=== PATIENT | female | born 1970 | race Caucasian/White ===

== ENCOUNTER → 2018-04-29 | Outpatient (CLI) | payer MEDICAID, OTHER ==
[~2018-04-29] MED LIST: ACHD5005 PO; ONDA-43 PO
--- NOTE | 2018-05-02 15:51 | Diagnostic Imaging Report ---
INDICATION: Routine screening. COMPARISON: 10/30/2015. TECHNIQUE: 2D and 3D bilateral screening mammography was performed with CAD. FINDINGS: Both breasts remain heterogeneously dense, limiting the sensitivity of mammography. Benign nodular densities are identified bilaterally. No spiculated mass or malignant appearing microcalcifications are seen. There are benign calcifications bilaterally. The axillae are unremarkable. IMPRESSION: No mammographic features suspicious for malignancy are identified. ACR BI-RADS Category 2: Benign findings. Result letter will be mailed to the patient. Note: At least 10% of breast cancer is not imaged by mammography. Dictated by: Dictated on workstation # [id number]
== END ==
LOC: RAD 14:09
PROVIDERS: ATTEND Nurse Practitioner
DX: Z12.31 Encounter for screening mammogram for malignant neoplasm of breast (principal)
CPT/HCPCS: 77067

== ENCOUNTER 2018-05-06 11:32 | Outpatient (CLI) | payer MEDICAID ==
[~2018-05-06] VITALS: Ht 162.6 cm; Wt 64.9 kg
== END 2018-05-06 12:59 ==
LOC: PREOP 11:32
PROVIDERS: ATTEND Surgery
DX: Z01.818 Encounter for other preprocedural examination (principal); D17.1 Benign lipomatous neoplasm of skin and subcutaneous tissue of trunk

== ENCOUNTER 2018-05-09 07:06 | Day surgery (SDC) | payer MEDICAID ==
[~2018-05-09] VITALS: Ht 162.6 cm; Wt 64.9 kg
[2018-05-09 07:10] VITALS: BP 108/76
--- OUTSIDE RECORDS SUMMARY | 2018-05-09 07:10 | XMS REPORT | Continuity of Care Document ---
Author Author [facility] Organization [facility] Address Unknown Phone Unavailable Allergies Active Description Code Type Severity Reaction Onset Reported/Identified Relationship to Patient Clinical Status Yes No Known Drug Allergies [id number] Drug Allergy Unknown N/A 12/02/2014 Medications There is no data. Problems Date Dx Coded Attending Type Code Diagnosis Diagnosed By 12/02/2014 NARINDER SLATER, GRACIE Ricketts Ot 558.9 NONINF GASTROENTERIT NEC 12/02/2014 GRACIE BARCENAS MD Ot 787.03 VOMITING ALONE 12/03/2014 EVON SLATER, HUGO Prieto Ot 540.9 ACUTE APPENDICITIS NOS Procedures There is no data. Results Test Result Range THYROID ANALYZER - 04/13/18 09:31 TSH 2.13 mIU/L NRG Encounters ACCT No. Visit Date/Time Discharge Status Pt. Type Provider Facility Loc./Unit Complaint [id number] 04/29/2018 14:09:00 04/29/2018 23:59:59 CLS Outpatient JAI HART [facility] RAD VISIT FOR SCREENING MAMMOGRAM [id number] 12/02/2014 23:56:00 12/03/2014 16:50:00 DIS Outpatient HUGO BARNARD MD [facility] ACUTE APPENDICITIS [id number] 12/02/2014 08:57:00 12/02/2014 12:00:00 DIS Emergency GRACIE BARCENAS MD [facility] ER VOMITING [id number] 12/04/2014 15:00:46 ACT Document Registration [id number] 04/20/2018 18:20:00 04/20/2018 23:59:59 CLS Outpatient PEARL ALDALOREN [facility] [id number] 04/13/2018 08:00:00 Document Registration
[2018-05-09] MEDS ORDERED: LACTATED RINGERS 1,000 ML IV PRN (07:22)
[2018-05-09] MEDS ORDERED: ceFAZolin 2 GM IV Premixed 50 ML IV ONE (07:30)
[2018-05-09] MEDS ORDERED: LIDOCAINE/EPI 1%-1:200,000 (XYLOCAINE) 10 ML VIAL ONE (07:46)
[2018-05-09] MEDS ORDERED: ONDANSETRON 4 MG/2 ML (SDV) Z0FRAN ONE (08:18)
[2018-05-09] MEDS ORDERED: LIDOCAINE PF 2% 5 ML (XYLOCAINE) VIAL ONE (08:18)
[2018-05-09] MEDS ORDERED: MIDAZOLAM 10 MG/2 ML (VERSED) VIAL ONE (08:18)
[2018-05-09] MEDS ORDERED: proPOfol 200 MG/20 ML (DIPRIVAN) VIAL IV ONE (08:18)
[2018-05-09] MEDS ORDERED: DEXAMETHASONE 10 MG/ML (DECADRON) 1 ML VIAL ONE (08:18)
[2018-05-09] MEDS ORDERED: MIDAZOLAM 2 MG/2 ML (VERSED) VIAL ONE (08:19)
[2018-05-09] MEDS ORDERED: fentaNYL INJECTION 100 MCG/2 ML AMP ONE (08:19)
--- NOTE | 2018-05-09 09:08 | Progress Note-Pre Operative ---
Pre-Operative Progress Note H&P Reviewed The H&P was reviewed, patient examined and no changes noted. Time Seen by Provider: 09:01 Date H&P Reviewed: May 09, 2018 Time H&P Reviewed: 09:04 Pre-Operative Diagnosis: left back/shoulder lipoma, screening colonoscopy RUIZ GARCIA DO May 09, 2018 09:08
[2018-05-09] MEDS ORDERED: SEVOFLURANE (ULTANE) 15 ML INHAL SOLN ONE (09:34)
[2018-05-09] MEDS ORDERED: PHENYLEPHRINE 100 MCG/ML 10 ML (ANESTHESIA) SYR ONE (09:34)
[2018-05-09] MEDS ORDERED: GLYCOPYRROLATE 0.2 MG/ML (ROBINUL) 2 ML VIAL ONE (09:35)
[2018-05-09] MEDS ORDERED: NEOSTIGMINE 1 MG/ML 5 ML SYRINGE ONE (09:35)
--- NOTE | 2018-05-09 10:07 | Progress Note-Post Operative ---
Post-Operative Progess Note Surgeon (s)/Sales Merchandising Specialist (s) Surgeon RUIZ GARCIA DO Sales Merchandising Specialist: none Pre-Operative Diagnosis left back/shoulder lipoma, screening colonoscopy Post-Operative Diagnosis Left back mass pending pathology Internal hemorrhoids Procedure & Operative Findings Date of Procedure 05/09/18 Procedure Performed/Findings 1. Excision back mass, subcutaneous just above fascia 2.3cm incision\ 2. Colonoscopy Anesthesia Type GET Estimated Blood Loss Estimated blood loss (mL): scant Specimens/Packing Specimens Removed Left back mass RUIZ GARCIA DO May 09, 2018 10:07
[2018-05-09] MEDS ORDERED: ACHD5005 PO (10:08)
--- NOTE | 2018-05-09 10:10 | Discharge Inst-Surgical ---
Discharge Inst-Surgical Depart Medication/Instructions New, Converted or Re-Newed RX: RX Given to Pt/Family Patient Instructions Follow up Appt: Make appointment for 1 week. Instructions: No lifting greater than 10 pounds. No strenuous activity. May shower in 24 hours, no tub bath or soaking. Use incentive spirometer at home as directed. No Smoking Skin/Wound Care: May remove bandages. You need to leave the Dermabond on over incision it will fall off on its own. Symptoms to Report: Appetite Changes, Extremity Discoloration, Numbness/Tingling, Swelling Increased , Bleeding Excessive, Eyesight Changes, Pain Increased, Urine Color Change, Constipation(Persistent), Fever over 101 degree F, Pain/Pressure in chest, Urinating Difficulty, Cough Up/Vomit Blood, Heart Beat Irreg/Pounding, Pain/ Pressure in jaw, Vaginal Bleeding Increase, Cramps in feet or legs, Lightheadedness, Pain/Pressure in shoulder, Diarrhea(Persistent), Memory Changes Suddenly, Questions/Concerns, Weight gain consecutive days, Dizziness/ Fainting, Nausea/Vomiting, Shortness of Breath, Weight gain over 2 pounds If questions or concerns contact your physician Or seek help at emergency department. Activity Activity as Tolerated: Yes Activity Instructions: Avoid Stress to Incision Driving Instructions: No Driving/Refer to Dr. Otto Discharge Diet: No Restrictions Diet After 24 Hours: Clear Liquid if Nauseous If Any Problems/Questions/Issu: Contact Your Physician, Go to Emergency Room Skin/Wound Care Infection Signs and Symptoms: Increased Redness, Foul Odor of Wound, Increased Drainage, Skin Itchy or Has a Rash, Increased Swelling, Temperature Above 101 F Bathing Instructions: Shower Stitches/[place]/Dermabond Dis: Dermabond Ice Pack: Ice On and Off Site RUIZ GARCIA DO May 09, 2018 10:10
[2018-05-09] MEDS ORDERED: HYDROmorphone 1 MG/ML (DILAUDID) 1 ML SYRINGE IV PRN (10:30)
[2018-05-09] MEDS ORDERED: ONDANSETRON 4 MG/2 ML (SDV) Z0FRAN IVP PRN (10:30)
[2018-05-09] MEDS ORDERED: MEPERIDINE (DEMEROL) INJ 50 MG/ML IVP PRN (10:30)
[2018-05-09] MEDS ORDERED: fentaNYL INJECTION 100 MCG/2 ML AMP IVP PRN (10:30)
[2018-05-09 11:00] VITALS: BP 105/72
[2018-05-09 11:30] VITALS: BP 103/65
[2018-05-09 12:00] VITALS: BP 108/76
[2018-05-09 12:37] VITALS: BP 108/76
--- NOTE | 2018-05-09 14:22 | Anesthesia-General Post-Op ---
General Patient Condition Mental Status/LOC: Same as Preop Cardiovascular: Satisfactory Nausea/Vomiting: Absent Respiratory: Satisfactory Pain: Controlled Complications: Absent Post Op Complications Complications None Follow Up Care/Instructions Patient Instructions None needed. Anesthesia/Patient Condition Patient Condition Patient is doing well, no complaints, stable vital signs, no apparent adverse anesthesia problems. No complications reported per nursing. D/C home per [facility] Criteria: Yes ERIC OLIVER CRNA May 09, 2018 14:22
--- NOTE | 2018-05-09 21:30 | OPERATIVE REPORT ---
DATE OF SERVICE: 05/09/2018 PREOPERATIVE DIAGNOSES: 1. Back mass. 2. Screening colonoscopy. POSTOPERATIVE DIAGNOSES: 1. Back mass. 2. Screening colonoscopy. 3. Pending pathology. PROCEDURES: 1. Excision of back mass 2.3 cm incision down to the fascia just above the muscle. 2. Colonoscopy. SURGEON: Yonis Almonte DO PEDIATRIC PHYSICIAN: None. ANESTHESIA: General endotracheal tube. BLOOD LOSS: Scant. FLUIDS: Per anesthesia. SPECIMEN: Back mass sent to pathology. INDICATION FOR PROCEDURE: The patient is a 47-year-old female who had a mass on her back that she wanted to remove. It was right in the bra strap causing to bother her, unsure whether it was increased in size and she has a strong family history of colon cancer, needed a screening colonoscopy. FINDINGS: The patient had a back mass, sent to pathology. Looked like it was just a lipoma. Colonoscopy just showed some internal hemorrhoids. PROCEDURE NOTE: After informed consent was obtained, the patient was brought to the operating room, placed on the table in the right lateral decubitus position. She was then sterilely prepped and draped in normal fashion. I started with taking out the back mass. Infiltrated above the mass with local lidocaine and it had already been previously marked, infiltrated the skin with local and then a round mass in the main incision with #15 blade, carried down through the skin into the subcutaneous tissue, then deep down to subcutaneous tissue with Bovie electrocautery. Incision measured 2.3 cm. Looked like just a lipoma, but it did not come out in 1 piece. It was little finger-like projection going off, able to dig down and removed this mass. It was all the way right on top of the fascia above the muscle. Able to remove this and then passed this off the table. Hemostasis obtained using Bovie electrocautery. Copiously irrigated with normal saline, suctioned this out and then elected to close the incision once I assured that all of the mass was out closing with 4-0 undyed Monocryl 3 interrupted subcuticular stitches. Area was cleaned and dried and Dermabond placed. The sterile field was taken down and she was then flipped into the left lateral decubitus position and then switched gloves and gown and started the colonoscopy, inserted the scope, pushed all the way about 140 cm, able to get to the cecum, took a picture of appendiceal orifice, noted the ileocecal valve and then slowly withdrew the scope, insufflating to look circumferentially at the de jesus. Starting in the cecum up the ascending colon to the hepatic flexure, down the transverse colon to the splenic flexure, into the descending colon and down into the sigmoid and finally into the rectum, retroflexed in the rectal vault, saw some internal hemorrhoids, took a picture of this and then removed the scope. The patient tolerated the procedure and she was then transferred to recovery room in stable condition. Sponge, instrument and needle count correct at the end of the case. Job ID: [id number] DocumentID: [id number] Dictated Date: 05/09/2018 14:18:38 Customer Specialist Date: 05/09/2018 21:30:18 Dictated By: YONIS ALMONTE DO MTDJed
== END 2018-05-09 12:37 | disposition home or self-care (01) ==
LOC: SDC 07:06
PROVIDERS: ATTEND Surgery
DX: Z12.11 Encounter for screening for malignant neoplasm of colon (principal); K64.8 Other hemorrhoids; D17.1 Benign lipomatous neoplasm of skin and subcutaneous tissue of trunk; Z80.0 Family history of malignant neoplasm of digestive organs
CPT/HCPCS: 84703; 87081

== ENCOUNTER 2020-02-06 17:02 | Observation (INO) | payer BC ==
[~2020-02-06] VITALS: Ht 162.6 cm; Wt 74.8 kg
[2020-02-06] MEDS ORDERED: NS IV 1000 ML 1,000 ML IV SCH ×2 (17:23)
[2020-02-06] MEDS ORDERED: KETOROLAC 30 MG/ML VIAL IVP ONE (17:30)
[2020-02-06] MEDS ORDERED: cefTRIAXone FOR IV USE 1,000 MG in WATER (STERILE) FOR INJECTION 10 ML IV ONE ×2 (17:30→19:00)
[2020-02-06] MEDS ORDERED: AZITHROMYCIN INJECTION 500 MG in NS (IVPB) 250 ML IV ONE (17:30)
--- NOTE | 2020-02-06 17:31 | ED Respiratory ---
General Chief Complaint: Cough/Cold/Flu Symptoms Stated Complaint: FEVER / BODY ACHES / HEADACHE Nursing Triage Note: pt amb to traige with complaint of cough, fever, and sore throat that started last night. states has hx of pneumonia that turned into septic shock Source: patient Exam Limitations: no limitations (EMI SINGH) History of Present Illness Date Seen by Provider: Feb 06, 2020 Time Seen by Provider: 17:10 Initial Comments The patient arrives to the ER by private conveyance with chief complaint of fever or chills malaise, body aches, sore throat. She says her cough is rare and produces only a small amount of phlegm. She's not having any nausea vomiting diarrhea or rash. She's had back in 2016 she got septic shock with pneumonia. Other than that she's had a completely healthy existence. She's had an appendectomy. She follows occasionally at [facility] but does not take any routine medicines or have any other significant medical history. She does not take control nor does she have a tubal ligation, essure for other contraceptive device. She has not had any antipyretic medication since yesterday because she wanted to prove that she had a fever to the emergency staff. (EMI SINGH) Allergies and Home Medications Allergies Coded Allergies: No Known Drug Allergies (Unverified , 12/02/14) Home Medications Hydrocodone Bit/Acetaminophen 1 Tab Tab, 1 TAB PO Q6H PRN Prescribed by: RUIZ GARCIA on 05/09/18 1008 Patient Home Medication List Home Medication List Reviewed: Yes (EMI SINGH) Review of Systems Review of Systems Constitutional: chills, fever, malaise, weakness EENTM: No ear discharge, No ear pain Respiratory: cough, phlegm, short of breath, wheezing Cardiovascular: No chest pain, No Hx of Intervention, No palpitations Gastrointestinal: No abdominal pain, No constipation, No diarrhea, No nausea, No vomiting Genitourinary: No discharge, No dysuria, No frequency, No hematuria : No Musculoskeletal: see HPI; No back pain, No joint pain Skin: No pruritus, No rash Psychiatric/Neurological: Denies Anxiety, Denies Depressed (EMI SINGH) All Other Systems Reviewed Negative Unless Noted: Yes (EMI SINGH) Past Ylxfcuj-Tmidby-Rkdhdz Hx Patient Social History Alcohol Use: Occasionally Uses Recreational Drug Use: No Smoking Status: Never a Smoker Recent Foreign Travel: No Contact w/Someone Who Travel: No Recent Infectious Disease Expo: No Recent Hopitalizations: No (EMI SINGH) Immunizations Up To Date Tetanus Booster (TDap): Unknown (EMI SINGH) Seasonal Allergies Seasonal Allergies: No (EMI SINGH) Past Medical History Surgeries: Yes (WISDOM TEETH, dxls, leep) Appendectomy Respiratory: Yes (hx of strep pneumonia w/ septic shock) Cardiac: No Neurological: No Reproductive Disorders: No Female Reproductive Disorders: 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 Sexually Transmitted Disease: No Kidney Stones Gastrointestinal: No Musculoskeletal: Yes (RIGHT WRIST- FX) Fractures Endocrine: No Cancer: No Psychosocial: No Integumentary: No Blood Disorders: No Adverse Reaction/Blood Tranf: No (EMI SINGH) Family Medical History Colon cancer FH: colon cancer 19 MOTHER, Onset:Unknown Thyroid disease 19 MOTHER, Onset:Unknown Physical Exam Vital Signs - First Documented 02/06/20 17:07 Temp 39.4 Pulse 138 Resp 20 B/P (MAP) 122/69 (86) Pulse Ox 97 O2 Delivery Room Air (HINA MADERA MD) Capillary Refill : Less Than 3 Seconds (EMI SINGH) Height: 5'4.00" Weight: 143lbs. 0.0oz. 64.978136yb; 28.00 BMI Method:Stated General Appearance: WD/WN, mild distress, moderate distress Eyes: Bilateral Eye Normal Inspection, Bilateral Eye PERRL, Bilateral Eye EOMI HEENT: PERRL/EOMI, normal ENT inspection, TMs normal, pharynx normal Neck: full range of motion, supple, normal inspection Respiratory: lungs clear, normal breath sounds, no accessory muscle use, respiratory distress (mild, respiratory rate of 20; oxygen saturation 99% on room air.) Cardiovascular: normal peripheral pulses, regular rate, rhythm Gastrointestinal: normal bowel sounds, non tender, soft Extremities: normal range of motion, non-tender, normal capillary refill Neurologic/Psychiatric: alert, normal mood/affect, oriented x 3 Skin: normal color, warm/dry (EMI SINGH) Focused Exam Lactate Level 02/06/20 17:25: Lactic Acid Level 1.93 (HINA MADERA MD) Lactic Acid Level Laboratory Tests Test 02/06/20 17:25 Lactic Acid Level 1.93 MMOL/L (0.50-2.00) (HINA MADERA MD) Progress/Results/Core Measures Suspected Sepsis Recent Fever Within 48 Hours: Yes Infection Criteria Present: None New/Unexplained Altered Menta: No Sepsis Screen: No Definite Risk SIRS Temperature: Pulse: 138 Respiratory Rate: 20 Laboratory Tests 02/06/20 17:25: White Blood Count 17.6H Blood Pressure 122 /69 Mean: 86 02/06/20 17:25: Lactic Acid Level 1.93 Laboratory Tests 02/06/20 17:25: Creatinine 0.77, INR Comment 1.0, Platelet Count 239, Total Bilirubin 0.5 (EMI SINGH) Results/Orders Lab Results Laboratory Tests Test 02/06/20 17:25 02/06/20 17:35 02/06/20 18:00 Range/Units White Blood Count 17.6 H 4.3-11.0 10^3/uL Red Blood Count 4.69 4.35-5.85 10^6/uL Hemoglobin 13.6 11.5-16.0 G/DL Hematocrit 40 35-52 % Mean Corpuscular Volume 86 80-99 FL Mean Corpuscular Hemoglobin 29 25-34 PG Mean Corpuscular Hemoglobin Concent 34 32-36 G/DL Red Cell Distribution Width 14.2 10.0-14.5 % Platelet Count 239 130-400 10^3/uL Mean Platelet Volume 10.1 7.4-10.4 FL Neutrophils (%) (Auto) 93 H 42-75 % Lymphocytes (%) (Auto) 4 L 12-44 % Monocytes (%) (Auto) 3 0-12 % Eosinophils (%) (Auto) 0 0-10 % Basophils (%) (Auto) 0 0-10 % Neutrophils # (Auto) 16.4 H 1.8-7.8 X 10^3 Lymphocytes # (Auto) 0.7 L 1.0-4.0 X 10^3 Monocytes # (Auto) 0.5 0.0-1.0 X 10^3 Eosinophils # (Auto) 0.0 0.0-0.3 10^3/uL Basophils # (Auto) 0.0 0.0-0.1 10^3/uL Neutrophils % (Manual) 89 % Lymphocytes % (Manual) 5 % Monocytes % (Manual) 3 % Eosinophils % (Manual) 0 % Basophils % (Manual) 0 % Band Neutrophils 2 % Reactive Lymphocytes 1 % Blood Morphology Comment NORMAL Prothrombin Time 13.7 12.2-14.7 SEC INR Comment 1.0 0.8-1.4 Activated Partial Thromboplast Time 29 24-35 SEC Sodium Level 132 L 135-145 MMOL/L Potassium Level 4.4 3.6-5.0 MMOL/L Chloride Level 98 98-107 MMOL/L Carbon Dioxide Level 20 L 21-32 MMOL/L Anion Gap 14 5-14 MMOL/L Blood Urea Nitrogen 11 7-18 MG/DL Creatinine 0.77 0.60-1.30 MG/DL Estimat Glomerular Filtration Rate > 60 BUN/Creatinine Ratio 14 Glucose Level 92 70-105 MG/DL Lactic Acid Level 1.93 0.50-2.00 MMOL/L Calcium Level 9.2 8.5-10.1 MG/DL Corrected Calcium 9.1 8.5-10.1 MG/DL Total Bilirubin 0.5 0.1-1.0 MG/DL Aspartate Amino Transf (AST/SGOT) 33 5-34 U/L Alanine Aminotransferase (ALT/SGPT) 18 0-55 U/L Alkaline Phosphatase 74 40-136 U/L C-Reactive Protein High Sensitivity 7.23 H 0.00-0.50 MG/DL Total Protein 8.0 6.4-8.2 GM/DL Albumin 4.1 3.2-4.5 GM/DL Procalcitonin 0.04 <0.10 NG/ML Urine Color PALLAVI H Urine Clarity TURBID Urine pH 6.0 5-9 Urine Specific [place] 1.020 1.016-1.022 Urine Protein 1+ H NEGATIVE Urine Glucose (UA) NEGATIVE NEGATIVE Urine Ketones 1+ H NEGATIVE Urine Nitrite NEGATIVE NEGATIVE Urine Bilirubin NEGATIVE NEGATIVE Urine Urobilinogen 0.2 < = 1.0 MG/DL Urine Leukocyte Esterase NEGATIVE NEGATIVE Urine RBC (Auto) 3+ H NEGATIVE Urine RBC TNTC H /HPF Urine WBC RARE /HPF Urine Squamous Epithelial Cells 0-2 /HPF Urine Crystals NONE /LPF Urine Bacteria FEW H /HPF Urine Casts NONE /LPF Urine Mucus SMALL H /LPF Urine Culture Indicated CULTURE PENDING Group A Streptococcus Screen NEGATIVE NEGATIVE (HINA MADERA MD) Micro Results Microbiology 02/06/20 Influenza Types A,B Antigen (NOEL) - Final, Complete (HINA MADERA MD) My Orders Orders - HINA MADERA MD Hs C Reactive Protein (02/06/20 18:05) Procalcitonin (Pct) (02/06/20 18:05) Ceftriaxone For Iv Use (Rocephin For I (02/06/20 19:00) Acetaminophen Tablet (Tylenol Tablet) (02/06/20 19:00) (HINA MADERA MD) Medications Given in ED Current Medications Medications Dose Ordered Sig/Shyanne Route Start Time Stop Time Status Last Admin Dose Admin Acetaminophen 1,000 mg ONCE ONCE PO 02/06/20 19:00 02/06/20 19:01 DC 02/06/20 19:03 1,000 MG Ceftriaxone Sodium 1000 mg/ Sterile Water 10 ml @ 200 mls/hr ONCE ONCE IV 02/06/20 19:00 02/06/20 19:02 DC 02/06/20 19:13 200 MLS/HR (HINA MADERA MD) Vital Signs/I&O 02/06/20 02/06/20 17:07 19:05 Temp 39.4 39.4 Pulse 138 112 Resp 20 20 B/P (MAP) 122/69 (86) 131/65 Pulse Ox 97 97 O2 Delivery Room Air Room Air 02/07/20 00:00 Intake Total 1270 ml Balance 1270 ml (HINA MADERA MD) Vital Signs/I&O Capillary Refill : Less Than 3 Seconds (EMI SINGH) Blood Pressure Mean: 86 Progress Note : Time: 17:32 Progress Note Flulike symptoms with mild rest for symptoms body aches. Plan to give her Toradol for her body aches and fever. Strep and influenza swabs. Septic workup. 2 L would be between 20 and 30 cc/kg. (EMI SINGH) Progress Note #1: Time: 19:49 Progress Note Care of this patient from Dr. Singh at shift change. I received verbal report and reviewed the chart, labs, x-ray, etc. Workup was significant for leukocytosis and elevated CRP. No source of infection was found. Chest x-ray, urinalysis, flu swab, and strep swab were all negative. I obtain some further history. Patient reports her 8-year-old son was ill last week for 2 or 3 days with fever and sore throat. He recovered without treatment and without being seen. She feels like her symptoms are similar. She primarily complains of congestion and drainage, sore throat, neck pain, and myalgias. Her chest symptoms have been minimal including some mild tightness and minimal cough. She denies any of the screening criteria for COVID 19 including contact with PUI, exposure to persons that have traveled to a high risk region, or travel to a high risk region herself. I did call [facility] and left a message about her case since no source of infection was identified and she has had exposure to children who recently visited ill family members out of town. 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 She also lives with an adult daughter who works at a school in [place], [place]. [facility] was contacted and I left a message for review. Significant symptoms she described to me included neck pain, neck stiffness, and headache actually worsened despite receiving IV fluids and Toradol. I discussed performing CT of the head and lumbar puncture with patient. She declines these tests stating it is common for her to have migraines and have headaches when she feels ill. She also states neck pain was already present before she became ill. She had no nuchal rigidity on exam. We discussed risks and benefits of CT of the head and lumbar puncture. She declines these assessments. Case was discussed with Dr. Bedolla who agrees to admit for observation. Patient received 1 g of Rocephin under Dr. Singh's care. I ordered a second gram of Rocephin. She also received azithromycin when under Dr. Singh's care. Those antibiotics were ordered prior to review of chest x-ray. Patient does not meet septic criteria as there is no source of bacterial infection identified. We will continue antibiotics as a precaution and observe her overnight. Tylenol was added for further treatment of her headache. Patient is agreeable to admission for observation. Progress Note #2: Time: 20:30 Progress Note Received a call back from financial project manager at the [facility]. Because of patient's significant symptoms with no source of infection identified, they would like her screening for COVID 19. Appropriate institutional precautions will now be enforced. This was discussed with the patient. Specimen collection is being performed and the appropriate questionnaire is being faxed to [facility]. She will be admitted to an isolation room. She was advised to investigate exposures the children in her classroom may have had. She was also advised to inform her close contacts that she is now a person under investigation (HINA MADERA MD) Diagnostic Imaging Diagonstic Imaging: Xray Plain Films/CT/US/NM/MRI: chest (1v) Reviewed: Reviewed by Me (EMI SINGH) Comments NAME: [facility] REC#: [id number] PT STATUS: REG ER : 1970 PHYSICIAN: EMI SINGH MD ADMIT DATE: 02/06/20/ER Signed Date of Exam:02/06/20 CHEST 1 VIEW, AP/PA ONLY INDICATION: Cough, fever, and sore throat. TIME OF EXAM: 06:15 p.m. COMPARISON: No prior studies are available for comparison. FINDINGS: The heart size is normal. The pulmonary vascularity is unremarkable. The lungs are clear. No infiltrate, effusion or pneumothorax is detected. IMPRESSION: No acute cardiopulmonary process is detected. Dictated by: Dictated on workstation # [id number] Dict: 02/06/201816 Trans: 02/06/201836 [id number] Interpreted by: RIGOBERTO CLIFTON MD Electronically signed by: RIGOBERTO CLIFTON MD 02/06/201836 (HINA MADERA MD) Transfer of Care Transfer of Care Time: 18:00 Care transferred to: Dr. Motley (EMI SNIGH) Departure Communication (Admissions) Time/Spoke to Admitting Phy: 19:20 Dr. Bedolla (HINA MADERA MD) Impression Primary Impression: Flu-like symptoms Additional Impressions: Sore throat Headache Qualified Codes: R51 - Headache Myalgia Disposition: ADMITTED INPATIENT Condition: Improved Admissions Decision to Admit Reason: Admit from ER (General) Decision to Admit/Date: Feb 06, 2020 Time/Decision to Admit Time: 18:00 (HINA MADERA MD) Departure-Patient Inst. Referrals: [facility] (PCP/Family) Primary Care Physician EMI SINGH Feb 06, 2020 17:31 HINA MADERA MD Feb 06, 2020 19:56
[2020-02-06 17:37] LABS: BASOPHILS % (AUTO) 0 % (0-10); EOSINOPHILS % (AUTO) 0 % (0-10); HEMATOCRIT 40 % (35-52); HEMOGLOBIN 13.6 G/DL (11.5-16.0); LYMPHOCYTES # (AUTO) 0.7 X 10^3 (1.0-4.0); LYMPHOCYTES % (AUTO) 4 % (12-44); MEAN CORPUSCULAR HEMOGLOBIN 29 PG (25-34); MEAN CORPUSCULAR HGB CONC 34 G/DL (32-36); MEAN CORPUSCULAR VOLUME 86 FL (80-99); MEAN PLATELET VOLUME 10.1 FL (7.4-10.4); MONOCYTES # (AUTO) 0.5 X 10^3 (0.0-1.0); MONOCYTES % (AUTO) 3 % (0-12); NEUTROPHILS # (AUTO) 16.4 X 10^3 (1.8-7.8); NEUTROPHILS % (AUTO) 93 % (42-75); PLATELET COUNT 239 10^3/uL (130-400); RED CELL DISTRIBUTION WIDTH 14.2 % (10.0-14.5); WHITE BLOOD COUNT 17.6 10^3/uL (4.3-11.0)
[2020-02-06 17:44] LABS: BILIRUBIN,URINE NEGATIVE (NEGATIVE); CLARITY,URINE TURBID; COLOR,URINE AMBER; GLUCOSE, URINE (UA) NEGATIVE (NEGATIVE); KETONES,URINE 1+ (NEGATIVE); LEUKOCYTE ESTERASE ,URINE NEGATIVE (NEGATIVE); NITRITE,URINE NEGATIVE (NEGATIVE); PROTEIN,URINE 1+ (NEGATIVE)
[2020-02-06 17:48] LABS: PROTHROMBIN TIME PATIENT 13.7 SEC (12.2-14.7)
[2020-02-06 17:49] LABS: BACTERIA,URINE FEW /HPF; RBC,URINE TNTC /HPF; SQUAMOUS EPITHELIAL CELL,UR 0-2 /HPF; WBC,URINE RARE /HPF
[2020-02-06 17:53] LABS: BAND NEUTROPHILS 2 %; BASOPHILS % (MANUAL) 0 %; EOSINOPHILS % (MANUAL) 0 %; LYMPHOCYTES % (MANUAL) 5 %; MONOCYTES % (MANUAL) 3 %; NEUTROPHILS % (MANUAL) 89 %; REACTIVE LYMPHOCYTES 1 %
[2020-02-06 17:54] LABS: ALANINE AMINOTRANSFERASE 18 U/L (0-55); ALBUMIN 4.1 GM/DL (3.2-4.5); ALKALINE PHOSPHATASE 74 U/L (40-136); BILIRUBIN,TOTAL 0.5 MG/DL (0.1-1.0); BUN/CREATININE RATIO 14; CALCIUM 9.2 MG/DL (8.5-10.1); CARBON DIOXIDE 20 MMOL/L (21-32); CHLORIDE 98 MMOL/L (98-107); CREATININE SERUM 0.77 MG/DL (0.60-1.30); GFR ESTIMATED > 60; GLUCOSE 92 MG/DL (70-105); POTASSIUM 4.4 MMOL/L (3.6-5.0); RBC MORPH NORMAL; SODIUM 132 MMOL/L (135-145)
--- NOTE | 2020-02-06 18:19 | Diagnostic Imaging Report ---
INDICATION: Cough, fever, and sore throat. TIME OF EXAM: 06:15 p.m. COMPARISON: No prior studies are available for comparison. FINDINGS: The heart size is normal. The pulmonary vascularity is unremarkable. The lungs are clear. No infiltrate, effusion or pneumothorax is detected. IMPRESSION: No acute cardiopulmonary process is detected. Dictated by: Dictated on workstation # [id number]
[2020-02-06] MEDS ORDERED: ACETAMINOPHEN 500 MG TAB (TYLENOL) PO ONE (19:00)
--- NOTE | 2020-02-06 19:08 | NUR ---
REPORT TO LOREN SAMANO
--- NOTE | 2020-02-06 19:09 | NUR ---
TEMP 99.3
--- NOTE | 2020-02-06 20:44 | NUR ---
ASSUMED PRIMARY NURSE ROLE
[2020-02-06 22:55] VITALS: BP 142/92
[2020-02-06] MEDS ORDERED: CATHETER FLUSH 10 ML SYR IV PRN (23:15)
[2020-02-06] MEDS ORDERED: ACETAMINOPHEN 500 MG TAB (TYLENOL) PO PRN (23:15)
--- OUTSIDE RECORDS SUMMARY | 2020-02-06 23:32 | XMS REPORT ---
Author Author Tamara FRANCO Organization [facility] Address [address] [place] [address] Care Team Providers Care Bank Consultant Name Role Phone ELYSIA FRANCO Unavailable PROBLEMS Type Condition ICD9-CM Code RFE15-LO Code Onset Dates Condition S tatus SNOMED Code Problem Elevated LDL cholesterol level E78.00 Active [id number] ALLERGIES No Information ENCOUNTERS Encounter Location Date Diagnosis [facility] [id number] [place] [phone] March, Lipoma of back D17.1 [place] [address] [address] [place] [phone] March, Elevated LDL cholesterol lev el E78.00 [facility] [address] [place] [phone] March, Annual physical exam Z00.00 and Lump of skin of back R22.2 IMMUNIZATIONS No Known Immunizations SOCIAL HISTORY Never Assessed REASON FOR VISIT lab order PLAN OF CARE VITAL SIGNS MEDICATIONS Unknown Medications RESULTS No Results PROCEDURES No Known procedures INSTRUCTIONS MEDICATIONS ADMINISTERED No Known Medications MEDICAL (GENERAL) HISTORY Type Description Date Medical History Anemia Medical History Sepsis 2015 Medical History Bacterial pneumonia- strep Medical History Ovarian cysts Surgical History Intrauterine device not placed correctly and had to be removed Surgical History Appendectomy Hospitalization History past surgery Hospitalization History pneumonia/sepsis
--- OUTSIDE RECORDS SUMMARY | 2020-02-06 23:32 | XMS REPORT | Continuity of Care Document ---
Author Organization Unknown Address Unknown Phone Unavailable Allergies Active Description Code Type Severity Reaction Onset Reported/Identified Relationship to Patient Clinical Status Yes No Known Drug Allergies [id number] Drug Allergy Unknown N/A 12/02/2014 Medications There is no data. Problems Date Dx Coded Attending Type Code Diagnosis Diagnosed By 12/02/2014 NARINDER SLATER, GRACIE Ricketts Ot 558 .9 NONINF GASTROENTERIT NEC 12/02/2014 NARINDER SLATER, GRACIE Ricketts Ot 787.03 VOMITING ALONE 12/03/2014 EVON SLATER, HUGO Prieto Ot 540.9 ACUTE APPENDICITIS NOS 05/02/2018 JAI HART Ot Z12.3 1 ENCNTR SCREEN MAMMOGRAM FOR MALIGNANT NE 05/06/2018 RADHA DO, RUIZ B Ot D17.1 BENIGN LIPOMATOUS NEOPLASM OF SKIN, SUBC 05/06/2018 RADHA DO, RUIZ B Ot Z01.8 18 ENCOUNTER FOR OTHER PREPROCEDURAL EXAMIN 05/09/2018 JAI HART DIRECTOR APPOINTMENT Ot Z12.3 1 ENCNTR SCREEN MAMMOGRAM FOR MALIGNANT NE 05/09/2018 RADHA DO, RUIZ B Ot D17.1 BENIGN LIPOMATOUS NEOPLASM OF SKIN, SUBC 05/09/2018 DELKAMRAN DO, RUIZ B Ot Z01.8 18 ENCOUNTER FOR OTHER PREPROCEDURAL EXAMIN 05/09/2018 DELMAN DO, RUIZ B Ot D17.1 BENIGN LIPOMATOUS NEOPLASM OF SKIN, SUBC 05/09/2018 DELMAN DO, RUIZ B Ot K64.8 OTHER HEMORRHOIDS 05/09/2018 DELKAMRAN DO, RUIZ B Ot Z12.1 1 ENCOUNTER FOR SCREENING FOR MALIGNANT NE 05/09/2018 RADHA DO, RUIZ B Ot Z80.0 FAMILY HISTORY OF MALIGNANT NEOPLASM OF 05/10/2018 DELKAMRAN DO, RUIZ B Ot D17.1 BENIGN LIPOMATOUS NEOPLASM OF SKIN, SUBC 05/10/2018 RADHA DO RUIZ B Ot K64.8 OTHER HEMORRHOIDS 05/10/2018 DELKAMRAN DO, RUIZ B Ot Z12.1 1 ENCOUNTER FOR SCREENING FOR MALIGNANT NE 05/10/2018 RUIZ GARCIA DO Ot Z80.0 FAMILY HISTORY OF MALIGNANT NEOPLASM OF 05/15/2018 RUIZ GARCIA DO Ot D17.1 BENIGN LIPOMATOUS NEOPLASM OF SKIN, SUBC 05/15/2018 RUIZ GARCIA DO Ot K64.8 OTHER HEMORRHOIDS 05/15/2018 RUIZ GARCIA DO Ot Z12.1 1 ENCOUNTER FOR SCREENING FOR MALIGNANT NE 05/15/2018 RUIZ GARCIA DO Ot Z80.0 FAMILY HISTORY OF MALIGNANT NEOPLASM OF 05/16/2018 JAI HART Ot Z12.3 1 ENCNTR SCREEN MAMMOGRAM FOR MALIGNANT NE 12/25/2019 JAI HART Ot Z12.3 1 ENCNTR SCREEN MAMMOGRAM FOR MALIGNANT NE 02/06/2020 JAI HART Ot Z12.3 1 ENCNTR SCREEN MAMMOGRAM FOR MALIGNANT NE Procedures There is no data. Results Test Result Range Urine beta human chorionic gonadotropin (hCG) measurement - 05/09/18 07:15 Urine beta human chorionic gonadotropin (hCG) measurem ent NEGATIVE NEGATIVE Methicillin resistant Staphylococcus aur eus (MRSA) screening culture - 05/09/18 07:35 Methicillin resistant Staphylococcus aureus (MRSA) scr eening culture NEG NRG Encounters ACCT No. Visit Date/Time Discharge Status Pt. Type Provider Facility Loc./Unit Complaint [id number] 01/05/2020 09:30:00 020 23:59:59 CLS Preadmit KAN MÁRQUEZ APRN [facility] RAD SCREENING [id number] 05/09/2018 07:06:00 018 12:37:00 DIS Outpatient RUIZ GARCIA DO [facility] SDC LIPOMA/COLONOSCOPY [id number] 05/06/2018 11:32:00 018 12:59:00 DIS Outpatient RUIZ GARCIA DO [facility] PREOP LIPOMA/COLONOSCOPY [id number] 04/29/2018 14:09:00 018 23:59:59 CLS Outpatient JAI HART [facility] RAD VISIT FOR SCREENING YURI MOGRAM [id number] 12/02/2014 23:56:00 015 16:50:00 DIS Outpatient EVON SLATER, HUGO Prieto [facility] ACUTE APPENDICITIS [id number] 12/02/2014 08:57:00 015 12:00:00 DIS Emergency NARINDER SLATER, GRACIE Ricketts [facility] ER VOMITING [id number] 02/06/2020 17:03:[address] Emergency CASSY SLATER, HINA Cordero [facility] ER FEVER / BODY ACHES / HEADACH E
--- OUTSIDE RECORDS SUMMARY | 2020-02-06 23:32 | XMS REPORT ---
Author Author [employer] Organization [facility] Address [address] [address] Care Team Providers Care Residential Energy Auditor Name Role Phone NO, LOCAL PHYSICIAN Unavailable Unavailable FRANCOELYSIA CARRINGTON Unavailable FRANCO, KIMMYLIOR Unavailable FRANCO, KIMMYLIOR Unavailable TRAMAINEROMULOAN Unavailable RUIZ GARCIA DO Unavailable Unavailable NARINDER SLATER, GRACIE Ricketts Unavailable Unavailable QUICK JAI MORGAN Unavailable Unavailable EVON SLATER, REUBEN Prieto Unavailable Unavailable Allergies The data below is from unstructured sources Allergen Type Severity Reaction Status Last Updated No Known Drug Allergies Active 12/02/14 No Information Medications Current Medications Medication Ingredient Drug Dose Dates Status Sig Sig Care Class(es) (Normalized) (Original) Provid er albendazole Albendazole Antihelmint 400 mg 10-20-20 Active no Albenza 200 no 200 mg oral Translation hic 18 information mg Orally name tablet (1 s: [ Once a day 2 (no source.) Albenza 200 tablets phone) mg] repeat in 2 weeks. 24h Sep, Active Completed/Discontinued Medications Medication Ingredient Drug Dose Dates Status Sig Sig Care Class(es) (Normalized) (Original) Provid er no Acetaminoph no 12-03-19 Complete take 5-1 Acetaminophe Reuben information en/Hydrocod information 15 - d tablets by n/H ydrocodon M (2 one Bitart 05-06-20 mouth every e Bitart Rachel sources.) (Lortab 5 18 four hours (Lortab 5 s (no Mg) 1 Tab as needed Mg) 1 Tab phone) Tab, 1-2 for pain Tab, 1-2 Tab Tab Oral Oral Every 4HRS as needed for Mild To Moderate Pain 12/03/14 Discontinued Problems Active Problems Problem Normalized Date of Normalized Normalized Provider Fac ility Classification Problem(s) Problem Problem Problem Sta tus Onset/Resoluti Duration on Other and Benign Episodic Active RUIZ GARCIA [facility] Via unspecified lipomatous DO [facility] benign neoplasm of Hospital - neoplasm (9 skin and [place] sources.) subcutaneous (03260) tissue of trunk Translations: [ - Lipoma of back D17.1] Other Encounter for Episodic Active IZAIAH MARTINEZ Vi a screening for screening [facility] [place] suspected [facility] for Hospital - conditions malignant [place] (not mental neoplasm of (94827) disorders or breast infectious Translations: disease) (7 [ ENCOUNTER sources.) FOR SCREENING FOR MALIGNANT NE] Residual Family history Episodic Active IZAIAH ROBERTS Via codes; of malignant DO [facility] unclassified neoplasm of Hospital - (3 sources.) digestive [place] organs (74667) Other and Lipoma Episodic Active LOCAL NO [facility] benign [place] neoplasm (2 (14531) sources.) Other skin Localized Episodic Active JAIMA FRANCO Communit y disorders (4 swelling, mass [address] [facility] r sources.) and lump, of [place] ([address]) Translations: [ - Lump of skin of back R22.2] Noninfectious Other and Episodic Active GRACIE ODGERS [facility] Via gastroenteriti unspecified , MD [place] jensen (4 sources.) noninfectious [facility] and colitis (32943) Hemorrhoids (3 Other Episodic Active IZAIAH ROBERTS Via sources.) hemorrhoids DO [facility] ([address]474) Other Raised low Episodic Active JAIMA FRANCO Communit y nutritional; density [address] [facility] endocrine; and lipoprotein of [facility] metabolic cholesterol [place] ([address]) disorders (4 Translations: sources.) [ Elevated LDL cholesterol level] Nausea and Vomiting alone Episodic Active GRACIE GANGERS [facility] Via vomiting (4 , MD [place] sources.) [facility] (17700) Past or Other Problems Problem Normalized Date of Normalized Normalized Provider Fac ility Classification Problem(s) Problem Problem Problem Sta tus Onset/Resoluti Duration on Unclassified Pure no information no information JAIMA BECKE R Community (4 sources.) hypercholester [address] [facility] Cent[facility] r [place], of [facility] ([address]) Translations: [ - Elevated LDL cholesterol level E78.00] Procedures Procedure Normalized Procedure Procedure Result Performer Facility Date 04-13-2018 Collection venous no information no name (no phone) [facility] blood venipuncture [facility] (08883) 05-09-2018 Colonoscopy no information RUIZ GARCIA Via [facility] ([id number]) 05-09-2018 - 05-09-2018 05-09-2018 Excision of lipoma no information RUIZ GARCIA Vi a [facility] (41308) 04-13-2018 Hemoglobin no information no name (no phone) [facility] glycosylated a1c [facility] (23645) 04-13-2018 LAB NOT BILLED BY no information no name (no phone) [facility] (77441) 04-13-2018 Radiologic exam chest no information no name (no ph one) [facility] 2 views [facility] (08918) Immunizations Normalized Immunization Date Notes Care Provider Facili ty Immunization Vaccination no information LOCAL NO Via [facility] Translations: [ [place] () vaccine] Results Test Name Value Interpretation Reference Range Date Time Fa cility (Normalized) (Normalized) (Medline Reference) No panel information on null Sodium no information (no code) Via [facility] ([address]306) Vital Signs Vital Sign Value Interpretation Reference Date Time Care Prov ider Facility (Normalized) (Normalized) Range BMI (Body Mass 30.55 kg/m2 (no code) 15 - 25 kg/m2 04-20-2018 Rentabilities FRANCO Community Index) 19:20-0400 [address]106 [facility] (31870) BMI (Body Mass 24.94 kg/m2 (no code) 15 - 25 kg/m2 04-13-2018 Rentabilities FRANCO Community Index) 09:00-0400 69365 [facility] (01622) Body 99.2 [degF] (no code) 97.8 - 99.0 04-20-2018 ELYSIA JONES Community Temperature [degF] 19:20-0400 7[address]28 [facility] (81651) Body 97.6 [degF] (no code) 97.8 - 99.0 04-13-2018 [facility] Temperature [degF] 09:00-0400 97109 [facility] (21513) Height 162.56 cm (no code) cm 04-20-2018 ELYSIA Alberto ommunity 19:20-0400 95418 [facility] (05603) Height 162.56 cm (no code) cm 04-13-2018 ELYSIA Alberto ommunity 09:00-0400 94793 [facility] (43723) Weight 80.74 kg (no code) kg 04-20-2018 ELYSIA FRANCO Co mmunity 19:20-0400 60252 [facility] (94209) Weight 65.91 kg (no code) kg 04-13-2018 ELYSIA Redmond mmunity 09:00-[address] [place] [address] ([address]) Interventions No Information Plan of Treatment The data below is from unstructured sources Discharge Date 12/03/14 4:50pm Disposition 01 HOME, SELF-CARE Instructions/Education Provided Acut e Abdominal Pain (ED) Forms Provided PDI Surgical Prescriptions See Medications Sectio n Referrals REUBEN BARNARD MD (Unspe cified) Address: [address] [place] [address] Reason(s) for Referral: 12/13/14 9:15 AM MAY RETURN TO WORK WHEN CLEARED BY DR. BARNARD Discharge Date 05/06/18 12:59pm Prescriptions See Medication Section Discharge Date 05/09/18 12:37pm Instructions/Education Provided ANES THESIA INSTRUCTIONS POSTOP COLONOSCOPY DERMABOND Surgical Wound (DC) Prescriptions See Medication Section Activity Details Follow Up With Dr. Macias Reason:lip shemar removal Activity Details Follow Up 3 Months, prn Reason:lump on back Goals No Information Social History No Information Functional Status The data below is from unstructured sources Query Response Date Frank rded Comprehension Ability Understands Co ncepts December 03, 2014 1:10am Mental Status No Information Encounters Encounter Normalized Encounter Encounter Diagnosis Care Provi césar Organization Date Type 04-20-2018 (ACUTE) Acute Visit Benign lipomatous ELYSIA FRANCO (no [facility] - neoplasm of skin and phone) (no phone ) 04-20-2018 subcutaneous tissue of - trunk 04-20-2018 04-13-2018 (PHYSICAL) Encounter for general ELYSIA FRANCO (no [facility] - Physical-Sport, Camp, adult medical phone) (n o phone) 04-13-2018 School, DOT, etc. examination without - abnormal findings 04-13-2018 05-09-2018 Admission to day no information RUIZ Nikolas DELShattered Reality Interactive Work no organization name - surgery (no phone ) 05-09-2018 05-09-2018 Patient encounter no information no name (no phone) no organization name - (no phone) 05-09-2018 05-06-2018 Patient encounter no information RUIZ B DELMAN Work no organization name - (no phone) 05-06-2018 RUIZ B [employer] 04-29-2018 Patient encounter no information JAI MORGAN QUICK W ork no organization name (no phone) JAI QUINTANILLALemonCrate 12-02-2014 Patient encounter no information no name (no phone) no organization name - (no phone) 12-03-2014 05-09-2018 Patient encounter no information no name (no phone) no organization name - procedure (no phone) 05-09-2018 05-06-2018 Patient encounter no information no name (no phone) no organization name - procedure (no phone) 05-06-2018 04-29-2018 Patient encounter no information no name (no phone) no organization name procedure (no phone) 12-02-2014 Patient encounter no information no name (no phone) no organization name - procedure (no phone) 12-03-2014 10-20-2018 Telephone encounter no information BELENZAYDA ROSENTHALCARSON (no phone) [facility] (no phone) 04-19-2018 Telephone encounter Pure ELYSIA FRANCO (no [facility] - hypercholesterolemia, phone) (no phon e) 04-19-2018 unspecified - 04-19-2018 no information Encounter for general no name (no phone) no o rganization name adult medical (no phone) examination without abnormal findings no information Encounter for other no name (no phone) no org anization name preprocedural (no phone) examination Medical Equipment No Information Payers Normalized Payer Value Unknown [id number] ([id number]) Advance Directives Directive Response Recor ded Date/Time Advance Directives No 12:55am Organ Donor Yes 12/03/14 12:55am Resuscitation Status Full Code 12/03/14 12:55am Directive Response Recor ded Date/Time Advance Directives No 8:55am Resuscitation Status Full Code 12/02/14 8:55am Directive Response Recor ded Date/Time Advance Directives No 12:45pm Organ Donor Yes 12/03/14 12:55am Resuscitation Status Full Code 05/06/18 12:45pm Directive Response Recor ded Date/Time Advance Directives No 7:10am Organ Donor Yes 05/09/18 7:10am Resuscitation Status Full Code 05/09/18 7:10am Discharge Instructions Patient Instructions Physician Instructions New, Converted or Re-Newed RX: RX on Chart Plan of Care/Instructions/FU: Dressings off in 48 hours. Incentive spirometry. Follow-up in 10 days. Activity as Tolerated: Yes Discharge Diet: Regular Diet No hospital discharge instructions.No hospital discharge instructions.No hospital discharge instruction information available.No hospital discharge instruction information available. Family History Relationship Condition A ge at Onset Recorded Date/Time Not Specified Family hx of colon cancer Not Recorded 05/06/2018 12:57pm Additional Source Comments This clinical document has been generated using CSID software that has been certified by the Office of the National Coordinator for Health Information Technology (ONC 15.99.04.3023.Diam.31.00.0.736120) and the National Committee for Installment Dealer (NCQA, as an eMeasure certified technology). FOR RECORDS PERTAINING TO PATIENTS WHO ARE OR HAVE BEEN ENROLLED IN A CHEMICAL D EPENDENCY/SUBSTANCE ABUSE PROGRAM, SOME INFORMATION MAY BE OMITTED. This clinica l summary was aggregated from multiple sources. Caution should be exercised in using it in the provision of clinical care. This summary normalizes information from multiple sources, and as a consequence, information in this document may ma terially change the coding, format and clinical context of patient data. In makenzie tion, data may be omitted in some cases. CLINICAL DECISIONS SHOULD BE BASED ON T HE PRIMARY CLINICAL RECORDS. [employer] provides no warranty or guara ntee of the accuracy or completeness of information in this document.The followi ng information is based on time limited clinical information UNRECOGNIZED CONTENT PROVIDED BELOW FOR UNRECOGNIZED SECTION MEDICAL (GENERAL) HISTORY Type Description Date Medical History Anemia Medical History Sepsis 2015 Medical History Bacterial pneumonia- strep Medical History Ovarian cysts Surgical History Intrauterine device not placed correctly and had to be removed Surgical History Appendectomy Hospitalization History past surgery Hospitalization History pneumonia/sepsis UNRECOGNIZED CONTENT PROVIDED BELOW FOR UNRECOGNIZED SECTION REASON FOR VISIT Worm treatment.
--- OUTSIDE RECORDS SUMMARY | 2020-02-06 23:32 | XMS REPORT ---
Author Author Tamara FRANCO Organization [facility] Address [address] [place] [address] Care Team Providers Care Warehouse Stocker Name Role Phone ELYSIA FRANCO Unavailable PROBLEMS Type Condition ICD9-CM Code CEO33-KT Code Onset Dates Condition S tatus SNOMED Code Problem Elevated LDL cholesterol level E78.00 Active [id number] ALLERGIES No Known Allergies ENCOUNTERS Encounter Location Date Diagnosis [facility] [address] [id number] [address] [place] [phone] March, Lipoma of back D17.1 [place] [address] [address] [place] [phone] March, Elevated LDL cholesterol lev el E78.00 [facility] [address] [place] [phone] March, Annual physical exam Z00.00 and Lump of skin of back R22.2 IMMUNIZATIONS No Known Immunizations SOCIAL HISTORY Never Assessed REASON FOR VISIT bernadette chino-Gilma PLAN OF CARE Activity Details Follow Up With Dr. Macias Reason:lipom a removal VITAL SIGNS Height 64 in 2018-04-20 Weight 178 lbs 2018-04-20 Temperature 99.2 degrees Fahrenheit 2018-04-20 Heart Rate 96 bpm 2018-04-20 Respiratory Rate 18 2018-04-20 BMI 30.55 kg/m2 2018-04-20 Blood pressure systolic 104 mmHg 2018-04-20 Blood pressure diastolic 62 mmHg 2018-04-20 MEDICATIONS Unknown Medications RESULTS No Results PROCEDURES [...]
--- OUTSIDE RECORDS SUMMARY | 2020-02-06 23:32 | XMS REPORT ---
Author Author Tamara FRANCO Organization [facility] Address [address] [place] [address] Care Team Providers Care Mirror Machine Feeder Name Role Phone ELYSIA FRANCO Unavailable PROBLEMS Type Condition ICD9-CM Code IFM09-FM Code Onset Dates Condition S tatus SNOMED Code Problem Elevated LDL cholesterol level E78.00 Active [id number] ALLERGIES No Known Allergies ENCOUNTERS Encounter Location Date Diagnosis [facility] [address] [place] [phone] March, Lipoma of back D17.1 [place] [address] [address] [place] [address] [id number] [place] [phone] March, Elevated LDL cholesterol lev el E78.00 [facility] [id number] [place] [phone] March, Annual physical exam Z00.00 and Lump of skin of back R22.2 IMMUNIZATIONS No Known Immunizations SOCIAL HISTORY Never Assessed REASON FOR VISIT Physical - DUE for Pap/HPV today--tcuppettRN, Has a lump on back that has been t here for about 5 months. Has not changed in size denies pain. PLAN OF CARE Activity Details Follow Up 3 Months, prn Reason:lump on back VITAL SIGNS Height 64 in 2018-04-13 Weight 145.3 lbs 2018-04-13 Temperature 97.6 degrees Fahrenheit 2018-04-13 Heart Rate 80 bpm 2018-04-13 Respiratory Rate 18 2018-04-13 BMI 24.94 kg/m2 2018-04-13 Blood pressure systolic 118 mmHg 2018-04-13 Blood pressure diastolic 70 mmHg 2018-04-13 MEDICATIONS Unknown Medications RESULTS No Results PROCEDURES Procedure Date Ordered Result Body Site Hemoglobin Test Send Out 0 dollar April 13, 2018 LAB NOT BILLED BY [facility] April 13, 2018 VENIPUNCT, ROUTINE* April 13, 2018 X-RAY EXAM CHEST 2 VIEWS April 13, 2018 INSTRUCTIONS MEDICATIONS ADMINISTERED No Known Medications MEDICAL (GENERAL) HISTORY Type Description Date Medical History Anemia Medical History Sepsis 2015 Medical History Bacterial pneumonia- strep Medical History Ovarian cysts Surgical History Intrauterine device not placed correctly and had to be removed Surgical History Appendectomy Hospitalization History past surgery Hospitalization History pneumonia/sepsis
--- OUTSIDE RECORDS SUMMARY | 2020-02-06 23:32 | XMS REPORT ---
Author Author Tamara REDD Organization [facility] Address [address] [place] [address] Care Team Providers Care News Production Assistant Name Role Phone BELEN REDD Unavailable PROBLEMS Type Condition ICD9-CM Code MKM60-AC Code Onset Dates Condition S tatus SNOMED Code Problem Elevated LDL cholesterol level E78.00 Active [id number] ALLERGIES No Information ENCOUNTERS Encounter Location Date Diagnosis [place] [address] [address] [facility] [id number] [address] [place] [phone] Sep, [place] [address] [address] [place] [id number] [place] [phone] March, Lipoma of back D17.1 [place] [address] [address] [facility] [id number] [address] [place] [phone] March, Elevated LDL cholesterol lev el E78.00 [place] [address] [address] [facility] [id number] [address] [place] [phone] March, Annual physical exam Z00.00 and Lump of skin of back R22.2 IMMUNIZATIONS No Known Immunizations SOCIAL HISTORY Never Assessed REASON FOR VISIT Worm treatment. PLAN OF CARE VITAL SIGNS MEDICATIONS Medication Instructions Dosage Frequency Start Date End Date Duration S tatus Albenza 200 mg Orally Once a day 2 tablets repeat in 2 weeks. 24h Sep, Active RESULTS No Results PROCEDURES No Known procedures [...]
[2020-02-06] MEDS: NS IV 1000 ML 1,000 ML IV SCH (23:33)
[2020-02-06] MEDS: IBUPROFEN 600 MG (MOTRIN) TAB PO PRN (23:54)
[2020-02-06 23:55] VITALS: BP 132/85
[2020-02-07 00:55] VITALS: BP 101/66
[2020-02-07 01:55] VITALS: BP 110/72
[2020-02-07 04:12] VITALS: BP 120/83
[2020-02-07] MEDS ORDERED: cefTRIAXone 2,000 MG/SWFI 20 ML IV PUSH IV SCH ×2 (05:30)
[2020-02-07 05:45] LABS: BASOPHILS % (AUTO) 0 % (0-10); EOSINOPHILS # (AUTO) 0.1 10^3/uL (0.0-0.3); EOSINOPHILS % (AUTO) 1 % (0-10); HEMATOCRIT 37 % (35-52); HEMOGLOBIN 11.9 G/DL (11.5-16.0); LYMPHOCYTES # (AUTO) 0.9 X 10^3 (1.0-4.0); LYMPHOCYTES % (AUTO) 7 % (12-44); MEAN CORPUSCULAR HEMOGLOBIN 29 PG (25-34); MEAN CORPUSCULAR HGB CONC 32 G/DL (32-36); MEAN CORPUSCULAR VOLUME 89 FL (80-99); MONOCYTES # (AUTO) 0.5 X 10^3 (0.0-1.0); MONOCYTES % (AUTO) 4 % (0-12); NEUTROPHILS # (AUTO) 11.4 X 10^3 (1.8-7.8); NEUTROPHILS % (AUTO) 88 % (42-75); PLATELET COUNT 209 10^3/uL (130-400); RED CELL DISTRIBUTION WIDTH 14.6 % (10.0-14.5)
[2020-02-07] MEDS ORDERED: CATHETER FLUSH 10 ML SYR IV SCH (06:00)
[2020-02-07] MEDS: NS IV 1000 ML 1,000 ML IV SCH (06:16)
[2020-02-07] MEDS: IBUPROFEN 600 MG (MOTRIN) TAB PO PRN (06:17)
[2020-02-07 06:23] LABS: ALANINE AMINOTRANSFERASE 14 U/L (0-55); ALBUMIN 3.4 GM/DL (3.2-4.5); ALKALINE PHOSPHATASE 66 U/L (40-136); BILIRUBIN,TOTAL 0.2 MG/DL (0.1-1.0); BUN/CREATININE RATIO 14; CALCIUM 7.9 MG/DL (8.5-10.1); CARBON DIOXIDE 23 MMOL/L (21-32); CHLORIDE 106 MMOL/L (98-107); CREATININE SERUM 0.78 MG/DL (0.60-1.30); GFR ESTIMATED > 60; GLUCOSE 108 MG/DL (70-105); POTASSIUM 3.4 MMOL/L (3.6-5.0); SODIUM 138 MMOL/L (135-145); TOTAL PROTEIN 6.6 GM/DL (6.4-8.2)
--- NOTE | 2020-02-07 07:26 | Diagnostic Imaging Report ---
INDICATION: Cough. Febrile. Comparison with 02/06/2020. FINDINGS: Portable chest shows the lungs to be well-aerated and clear. The heart is not enlarged. No pneumothorax or pleural effusion. No bony abnormalities. Heart is not enlarged. IMPRESSION: Normal portable chest unchanged. Dictated by: Dictated on workstation # [id number]
[2020-02-07 07:50] VITALS: BP 115/79
--- NOTE | 2020-02-07 10:53 | Discharge Summary ---
Discharge Summary Hospital Course Was the Problem List Reviewed?: Yes Problems/Dx: (1) Flu-like symptoms Status: Acute Hospital Course Date of Admission: Feb 06, 2020 at 19:28 Admission Diagnosis : Flulike symptoms [facility] Date of Discharge: 02/07/20 Discharge Diagnosis: Flulike symptoms Hospital Course: Tamara Moore is a 49-year-old female who presented with fever and was admitted with flulike symptoms. He reports that her symptoms started yesterday. Her son was sick last week with similar symptoms. She reports sore throat and cough. She reports body aches. Her flu test was negative twice. She had a negative procalcitonin twice. Her chest x-ray remained normal. She has a pending test for coronavirus. [facility] will be in contact with her about the results of her testing. She was discharged home to self quarantine. Labs and Pending Lab Test: Laboratory Tests 02/06/20 17:25: White Blood Count 17.6H, Red Blood Count 4.69, Hemoglobin 13.6, Hematocrit 40, Mean Corpuscular Volume 86, Mean Corpuscular Hemoglobin 29, Mean Corpuscular Hemoglobin Concent 34, Red Cell Distribution Width 14.2, Platelet Count 239, Mean Platelet Volume 10.1, Neutrophils (%) (Auto) 93H, Lymphocytes (%) (Auto) 4L , Monocytes (%) (Auto) 3, Eosinophils (%) (Auto) 0, Basophils (%) (Auto) 0, Neutrophils # (Auto) 16.4H, Lymphocytes # (Auto) 0.7L, Monocytes # (Auto) 0.5, Eosinophils # (Auto) 0.0, Basophils # (Auto) 0.0, Neutrophils % (Manual) 89, Ly mphocytes % (Manual) 5, Monocytes % (Manual) 3, Eosinophils % (Manual) 0, Basophils % (Manual) 0, Band Neutrophils 2, Reactive Lymphocytes 1, Blood Morphology Comment NORMAL, Prothrombin Time 13.7, INR Comment 1.0, Activated Partial Thromboplast Time 29, Sodium Level 132L, Potassium Level 4.4, Chloride Level 98, Carbon Dioxide Level 20L, Anion Gap 14, Blood Urea Nitrogen 11, Creatinine 0.77, Estimat Glomerular Filtration Rate > 60, BUN/Creatinine Ratio 14, Glucose Level 92, Lactic Acid Level 1.93, Calcium Level 9.2, Corrected Calcium 9.1, Total Bilirubin 0.5, Aspartate Amino Transf (AST/SGOT) 33, Alanine Aminotransferase (ALT/SGPT) 18, Alkaline Phosphatase 74, C-Reactive Protein High Sensitivity 7.23H, Total Protein 8.0, Albumin 4.1, Procalcitonin 0.04 02/06/20 17:35: Urine Color AMBERH, Urine Clarity TURBID, Urine pH 6.0, Urine Specific [place] 1.020, Urine Protein 1+H, Urine Glucose (UA) NEGATIVE, Urine Ketones 1+H, Urine Nitrite NEGATIVE, Urine Bilirubin NEGATIVE, Urine Urobilinogen 0.2, Urine Leukocyte Esterase NEGATIVE, Urine RBC (Auto) 3+H, Urine RBC TNTCH, Urine WBC RARE, Urine Squamous Epithelial Cells 0-2, Urine Crystals NONE, Urine Bacteria FEWH, Urine Casts NONE, Urine Mucus SMALLH, Urine Culture Indicated CULTURE PENDING 02/06/20 18:00: Group A Streptococcus Screen NEGATIVE 02/07/20 05:31: White Blood Count 13.0H, Red Blood Count 4.17L, Hemoglobin 11.9, Hematocrit 37, Mean Corpuscular Volume 89, Mean Corpuscular Hemoglobin 29, Mean Corpuscular Hemoglobin Concent 32, Red Cell Distribution Width 14.6H, Platelet Count 209, Mean Platelet Volume 10.0, Neutrophils (%) (Auto) 88H, Lymphocytes (%) (Auto) 7L , Monocytes (%) (Auto) 4, Eosinophils (%) (Auto) 1, Basophils (%) (Auto) 0, Neutrophils # (Auto) 11.4H, Lymphocytes # (Auto) 0.9L, Monocytes # (Auto) 0.5, Eosinophils # (Auto) 0.1, Basophils # (Auto) 0.0, Sodium Level 138, Potassium Level 3.4L, Chloride Level 106, Carbon Dioxide Level 23, Anion Gap 9, Blood Urea Nitrogen 11, Creatinine 0.78, Estimat Glomerular Filtration Rate > 60, BUN/Creatinine Ratio 14, Glucose Level 108H, Calcium Level 7.9L, Corrected Calcium 8.4L, Total Bilirubin 0.2, Aspartate Amino Transf (AST/SGOT) 14, Alanine Aminotransferase (ALT/SGPT) 14, Alkaline Phosphatase 66, Total Protein 6.6, Albumin 3.4, Procalcitonin 0.06 Microbiology 02/06/20 Influenza Types A,B Antigen (NOEL) - Final, Complete Home Meds Active Hydrocodone/Acetaminophen 5/325mg Tablet (Acetaminophen/Hydrocodone Bitart) 1 Tab Tab 1 Tab PO Q6H PRN Assessment/Pt Instructions Self quarantine as directed. [facility] will be in contact with you about your COVID test results. Discharge Planning: <30 minutes discharge planning Discharge Instructions Discharge Diet: No Restrictions Activity as Tolerated: Yes Discharge Physical Examination Vital Signs Vital Signs Date Time Temp Pulse Resp B/P (MAP) Pulse Ox O2 Delivery O2 Flow Rate FiO2 02/07/20 08:00 Room Air 02/07/20 07:50 37.1 94 14 115/79 (91) 96 General Appearance: No Apparent Distress, WD/WN Respiratory: Lungs Clear, Normal Breath Sounds, No Respiratory Distress Cardiovascular: Regular Rate, Rhythm, No Edema, No Murmur Gastrointestinal: Normal Bowel Sounds, Non Tender, Soft Extremity: Normal Inspection, Non Tender, No Pedal Edema Skin: Normal Color, Warm/Dry Neurologic/Psychiatric: Alert, Oriented x3, No Motor/Sensory Deficits, Normal Mood/Affect Allergies: Coded Allergies: No Known Drug Allergies (Unverified , 12/02/14) Discharge Summary Date of Admission Feb 06, 2020 at 19:28 Date of Discharge Discharge Date: Feb 07, 2020 Discharge Time: 10:48 Admission Diagnosis Flu-like symptoms Discharge Diagnosis (1) Flu-like symptoms Status: Acute Clinical Quality Measures DVT/VTE Risk/Contraindication: Risk Factor Score Per Nursin RFS Level Per Nursing on Admit: 1=Low/No VTE PPX VAN SMITH MD Feb 07, 2020 10:52
--- NOTE | 2020-02-08 14:00 | NUR ---
Received call from GHISLAINE and Dr Bedolla, patients COVID-19 testing was negative. Notified patient
== END 2020-02-07 13:05 | disposition home or self-care (01) ==
LOC: EDUNIT# 17:02 → ER 17:03 → ICU 19:28 → CSD 20:40 → EDPENDDISTM 02-07 11:30
PROVIDERS: ADMIT Family Medicine; ATTEND Family Medicine
DX: R05 Cough (principal); J02.9 Acute pharyngitis, unspecified; R50.9 Fever, unspecified; Z87.01 Personal history of pneumonia (recurrent); R51 Headache; M79.10 Myalgia, unspecified site
CPT/HCPCS: 36415; 71045; 80053; 81000; 83605; 84145; 84703; 85007; 85025; 85027; 85610; 85730; 86141; 87040; 87077; 87088; 87430; 87635; 87804

== ENCOUNTER → 2020-03-19 | Outpatient (CLI) | payer BC ==
--- NOTE | 2020-03-19 16:05 | Diagnostic Imaging Report ---
PROCEDURE: US Non-ob pelvis comp/trans. TECHNIQUE: Multiple realtime grayscale images were obtained of the pelvis in various projections endovaginally. Transabdominal imaging was also performed. INDICATION: Menorrhagia. FINDINGS: The uterus measures 12.2 x 6.8 x 8.2 cm. The endometrium is approximately 6 mm in thickness. There is an area of heterogeneity in the region of the cervix measuring 1.6 x 1.6 x 1.9 cm. Left ovary was not visualized. Right ovary measures 3.9 x 3.0 x 2.1 cm. There is a probable complex cyst in the right ovary measuring 2.2 cm in diameter. No free fluid is seen. IMPRESSION: 1. Rounded region of heterogeneity in the region of the cervix. Cervical mass cannot be entirely excluded. Direct visualization with pelvic exam is recommended. 2. Probable hemorrhagic cyst in right ovary, 2.2 cm. Dictated by: Dictated on workstation # [id number]
== END ==
LOC: RAD 14:46
PROVIDERS: ATTEND Nurse Practitioner Women's Health
DX: N92.1 Excessive and frequent menstruation with irregular cycle (principal); N93.8 Other specified abnormal uterine and vaginal bleeding; R42 Dizziness and giddiness
CPT/HCPCS: 76830; 76856

== ENCOUNTER 2020-12-26 11:43 | Outpatient (RCR) | payer BC ==
[~2020-12-26] VITALS: Ht 162.6 cm; Wt 67.3 kg
[2020-12-27] MEDS ORDERED: ACET-93 PO (13:48)
[2020-12-27] MEDS ORDERED: IBUP-844 PO (13:48)
[2020-12-27] MEDS ORDERED: OXC5T PO (13:48)
== END 2020-12-26 15:08 | disposition home or self-care (01) ==
LOC: PREOP 11:43
PROVIDERS: ATTEND Obstetrics & Gynecology
DX: Z01.812 Encounter for preprocedural laboratory examination (principal); N84.0 Polyp of corpus uteri; Z20.822 Contact with and (suspected) exposure to COVID-19

== ENCOUNTER 2020-12-27 11:11 | Day surgery (SDC) | payer BC ==
[2020-12-27] VITALS (11 sets, daily range): BP systolic 85–115; BP diastolic 54–75
[~2020-12-27] VITALS: Ht 162.6 cm; Wt 67.3 kg
[2020-12-27] MEDS ORDERED: LACTATED RINGERS 1,000 ML IV PRN (12:00)
[2020-12-27] MEDS ORDERED: ceFAZolin INJECTION 1,000 MG in WATER (STERILE) FOR INJECTION 10 ML IV ONE (12:00)
[2020-12-27] MEDS ORDERED: metroNIDAZOLE 500MG/100ML IVPB 100 ML IV ONE (12:00)
[2020-12-27] MEDS ORDERED: LIDOCAINE PF 2% 5 ML (XYLOCAINE) VIAL ONE (12:10)
[2020-12-27] MEDS ORDERED: MIDAZOLAM 2 MG/2 ML (VERSED) VIAL ONE (12:10)
[2020-12-27] MEDS ORDERED: fentaNYL INJECTION 100 MCG/2 ML AMP ONE (12:10)
[2020-12-27] MEDS ORDERED: SEVOFLURANE (ULTANE) 15 ML INHAL SOLN ONE (12:10)
[2020-12-27] MEDS ORDERED: ONDANSETRON 4 MG/2 ML (SDV) Z0FRAN ONE (12:10)
[2020-12-27] MEDS ORDERED: proPOfol 200 MG/20 ML (DIPRIVAN) VIAL IV ONE (12:10)
--- NOTE | 2020-12-27 12:50 | Progress Note-Pre Operative ---
Pre-Operative Progress Note H&P Reviewed The H&P was reviewed, patient examined and no changes noted. Date Seen by Provider: Dec 27, 2020 Time Seen by Provider: 12:30 Date H&P Reviewed: Dec 27, 2020 Time H&P Reviewed: 12:30 Pre-Operative Diagnosis: vaginal bleeding/hemorrhage, endometrial polyp EVE YAO DO Dec 27, 2020 12:50
[2020-12-27] MEDS ORDERED: PHENYLEPHRINE 100 MCG/ML 10 ML (ANESTHESIA) SYR ONE (13:18)
[2020-12-27] MEDS ORDERED: NEOSTIGMINE 3 MG/3 ML VIAL ONE (13:22)
[2020-12-27] MEDS ORDERED: ROCURONIUM 10 MG/ML 5 ML SYRINGE IV ONE (13:22)
[2020-12-27] MEDS ORDERED: GLYCOPYRROLATE 0.2 MG/ML (ROBINUL) 2 ML VIAL ONE (13:22)
[2020-12-27] MEDS ORDERED: KETOROLAC 30 MG/ML VIAL ONE (13:31)
[2020-12-27] MEDS ORDERED: KETOROLAC 30 MG/ML VIAL IVP ONE (13:45)
[2020-12-27] MEDS ORDERED: IBUPROFEN 600 MG (MOTRIN) TAB PO PRN (13:45)
--- NOTE | 2020-12-27 13:45 | Operative Report ---
Operative Report Date of Procedure/Surgery Dec 27, 2020 Surgeon (s) EVE YAO DO Bar Turner (s): NA Post-Operative Diagnosis menorrhagia/endometrial polyp Procedure Performed hysteroscopy, dilation and curettage, Kourtney endometrial ablation Description of Procedure Anesthesia Type: General Estimated blood loss (mL): minimal Specimen(s) collected/removed endometrial curettings Description of the Procedure With informed consent the patient was placed in the dorsolithotomy position and prepped and draped in the usual sterile fashion. There was blood noted on the perineum and inner thighs. A catheter was placed in the bladder. A weighted speculum was placed in the vagina. There were large clots coming from the cervix that were removed with a ring forceps. The anterior lip of the cervix was grasped with a tenaculum. I then inserted the hysteroscope and performed a hysteroscopy. There were numerous clots, so I allowed the fluid to dilute the clots before I could see the endometrium. There was extensive proliferative endometrium and polypoid tissue noted. Once I was able to visualize the endometrium and the tubal ostia bilaterally, I removed the scope. I then did a sharp curette until a gritty texture was heard. The tissue was sent for pathology I then measured the length of the uterine cavity with the included sound. I gently advanced to the fundus. The cervix was approximately 4 cm and the uterus just over 6.5 cm. I now inserted the Kourtney device and following the outlined instructions did a 120 second ablation. I followed this with a brief hysteroscope and then removed the device and then the tenaculum. There was good hemostasis. The patient was awakened and taken to recovery in a stable condition. Findings of the Procedure multiple blood clots. Proliferative endometrium, no obvious pathologic findings. length 6.5 cm Allergies and Home Medications Allergies Coded Allergies: No Known Drug Allergies (Unverified , 12/02/14) Home Medications Acetaminophen 500 Mg Tablet, 1,000 MG PO Q8H PRN for PAIN-MILD (1-4) Prescribed by: EVE YAO on 12/27/20 1348 Ibuprofen 600 Mg Tablet, 600 MG PO Q6HR PRN for PAIN-MILD (1-4) Prescribed by: EVE YAO on 12/27/20 1348 Oxycodone Hcl 5 Mg Tab, 5 MG PO Q4H PRN for PAIN-SEVERE (8-10) Prescribed by: EVE YAO on 12/27/20 7170 Patient Home Medication List Home Medication List Reviewed: Yes EVE YAO DO Dec 27, 2020 13:45
[2020-12-27] MEDS ORDERED: OXC5T PO (13:48)
[2020-12-27] MEDS ORDERED: ACET-93 PO (13:48)
[2020-12-27] MEDS ORDERED: IBUP-844 PO (13:48)
--- NOTE | 2020-12-27 13:52 | Discharge Inst-Women's Service ---
Discharge Inst-Women's Serv Depart Medication/Instructions New, Converted or Re-Newed RX: RX on Chart Final Diagnosis menorrhagia endometrial polyp Problems Reviewed?: Yes Consults/Follow Up Additional Follow Up: Yes (1-[address] Yao) Activity Activity: Activity as Tolerated Driving Instructions: No Driving for 24 Hours NO SMOKING: NO SMOKING Nothing Inside Vagina: No Douching, No [place], No Tampons Diet Discharge Diet: No Restrictions Symptoms to Report to : Swelling Increased, Bleeding Excessive, Pain Increased, Fever Over 101 Degrees F, Vaginal Bleeding Increase, Cramps in Feet or Legs, Vaginal Discharge Foul (expect spotting or light bleeding for 7-10 days, at about 2 weeks post op you may notice an increase in discharge. this would be normal, but if you have questions or concerns please call) For Any Problems or Questions: Contact Your Physician EVE YAO DO Dec 27, 2020 13:52
[2020-12-27] MEDS ORDERED: ACETAMINOPHEN 500 MG TAB (TYLENOL) PO PRN (14:00)
[2020-12-27] MEDS ORDERED: morphine INJ 10 MG/ML 1ML (SYR OR VIAL) IVP ONE (14:00)
[2020-12-27] MEDS ORDERED: ONDANSETRON 4 MG/2 ML (SDV) Z0FRAN IVP PRN (14:00)
--- NOTE | 2020-12-27 14:42 | Anesthesia-General Post-Op ---
General Patient Condition Mental Status/LOC: Same as Preop Cardiovascular: Satisfactory Nausea/Vomiting: Absent Respiratory: Satisfactory Pain: Controlled Complications: Absent Post Op Complications Complications None Follow Up Care/Instructions Patient Instructions None needed. Anesthesia/Patient Condition Patient Condition Patient is doing well, no complaints, stable vital signs, no apparent adverse anesthesia problems. No complications reported per nursing. [place] [facility] [place]: Yes ERIC OLIVER CRNA Dec 27, 2020 14:42
[2020-12-27 15:00] LABS: HEMOGLOBIN 11.2 g/dL (11.5-16.0)
== END 2020-12-27 15:55 | disposition home or self-care (01) ==
LOC: SDC 11:11
PROVIDERS: ATTEND Obstetrics & Gynecology
DX: N84.0 Polyp of corpus uteri (principal); D64.9 Anemia, unspecified; E78.5 Hyperlipidemia, unspecified; N92.0 Excessive and frequent menstruation with regular cycle; Z20.822 Contact with and (suspected) exposure to COVID-19; Z85.038 Personal history of other malignant neoplasm of large intestine; Z86.03 Personal history of neoplasm of uncertain behavior; Z80.0 Family history of malignant neoplasm of digestive organs; Z80.6 Family history of leukemia
CPT/HCPCS: 58563; 84703; 85014; 85018; 86850; 86900; 86901; 87081; 88305; U0002; 36415; 87635

== ENCOUNTER → 2022-06-04 | Outpatient (CLI) | payer BC ==
[~2022-06-04] MED LIST changes: +ACET-93 PO; +IBUP-844 PO; +OXC5T PO
--- NOTE | 2022-06-05 08:27 | Diagnostic Imaging Report ---
INDICATION: Routine screening. Comparison is made with prior mammogram 04/29/2018 and 10/30/2015. 2-D and 3-D bilateral screening mammography was performed with CAD. Both breasts are heterogeneously dense, limiting the sensitivity of mammography. Benign nodules in both breasts appear to be stable. No spiculated mass or malignant-appearing microcalcifications are seen. There are benign calcifications bilaterally. Axillae are unremarkable. IMPRESSION: No mammographic features suspicious for malignancy are identified. ACR BI-RADS Category 2: Benign findings. Result letter will be mailed to the patient. Note: At least 10% of breast cancer is not imaged by mammography. BI-RADS Category 2 Dictated by: Dictated on workstation # [id number]
== END ==
LOC: RAD 15:35
PROVIDERS: ATTEND Nurse Practitioner Women's Health
DX: Z12.31 Encounter for screening mammogram for malignant neoplasm of breast (principal)
CPT/HCPCS: 77063; 77067

== ENCOUNTER 2022-09-16 08:53 | Emergency (ER) | payer BC ==
[~2022-09-16] VITALS: Ht 162.5 cm; Wt 63.5 kg
[2022-09-16 09:37] LABS: BASOPHILS % (AUTO) 1 % (0-10); EOSINOPHILS # (AUTO) 0.1 10^3/uL (0.0-0.3); EOSINOPHILS % (AUTO) 2 % (0-10); HEMATOCRIT 43 % (35-52); HEMOGLOBIN 14.3 g/dL (11.5-16.0); LYMPHOCYTES # (AUTO) 1.2 10^3/uL (1.0-4.0); LYMPHOCYTES % (AUTO) 20 % (12-44); MEAN CORPUSCULAR HEMOGLOBIN 29 pg (25-34); MEAN CORPUSCULAR HGB CONC 33 g/dL (32-36); MEAN CORPUSCULAR VOLUME 89 fL (80-99); MEAN PLATELET VOLUME 9.3 fL (9.0-12.2); MONOCYTES # (AUTO) 0.4 10^3/uL (0.0-1.0); MONOCYTES % (AUTO) 7 % (0-12); NEUTROPHILS # (AUTO) 4.4 10^3/uL (1.8-7.8); NEUTROPHILS % (AUTO) 70 % (42-75); PLATELET COUNT 282 10^3/uL (130-400); WHITE BLOOD COUNT 6.3 10^3/uL (4.3-11.0)
[2022-09-16 09:57] LABS: ALBUMIN 4.2 GM/DL (3.2-4.5); POTASSIUM 3.8 MMOL/L (3.6-5.0)
[2022-09-16 09:58] LABS: CALCIUM 9.2 MG/DL (8.5-10.1)
[2022-09-16 09:59] LABS: TOTAL PROTEIN 7.6 GM/DL (6.4-8.2)
[2022-09-16] MEDS ORDERED: ESTROGENS CONJ IV 25 MG/5 ML (PREMARIN) VIAL IV ONE (10:00)
[2022-09-16 10:01] LABS: BILIRUBIN,TOTAL 0.5 MG/DL (0.1-1.0)
[2022-09-16 10:03] LABS: CREATININE SERUM 0.78 MG/DL (0.60-1.30)
[2022-09-16] MEDS ORDERED: WATER (STERILE) FOR INJECTION 10 ML ONE (10:14)
--- NOTE | 2022-09-16 10:26 | ED GU-Female ---
General Chief Complaint: - Reproductive Stated Complaint: EXCESSIVE BLEEDING Nursing Triage Note: PT AMB TO [facility] 6 WITH COMPLAINT OF VAGINAL BLEEDING AND CRAMPING. STATES STARTED LAST NIGHT WITH LIGHT BLEEDING AND HAS SOAKED THROUGH A PAD THIS MORNING. STATES HAS HAD THIS HAPPEN APPROX 4 TIMES IN THE PAST. HAD AN ABLATION LAST YEAR BY DR YOA. Source: patient Exam Limitations: no limitations History of Present Illness Date Seen by Provider: Sep 16, 2022 Time Seen by Provider: 09:21 Initial Comments Here with complaint of heavy vaginal bleeding and some cramping. This started last night but was significant this morning. She apparently was on her way to work and soaked through a large pad and soaked her car seat as well. She has had this a few times in the past and has had an ablation previously with the hopes that that would hold. They had discussed hysterectomy in the past. Hormone therapy has not worked well for her but she has not had any significant side effects. Did follow-up with Dr. Yao but now is looking for a new provider as she has moved. Denies constitutional symptoms. 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 Timing/Duration: this morning Severity/Quality: moderate, severe, cramping, other (Vaginal bleeding) Location: vaginal Radiation: none Associated Symptoms: abdominal pain (Cramping suprapubic); No fever/chills, No lower back pain, No nausea/vomiting, No urinary frequency Allergies and Home Medications Allergies Coded Allergies: No Known Drug Allergies (Unverified , 12/02/14) Patient Home Medication List Home Medication List Reviewed: Yes Acetaminophen (Acetaminophen) 500 Mg Tablet, 1,000 MG PO Q8H PRN for PAIN-MILD (1-4) Prescribed by: EVE YAO on 12/27/20 1348 Ibuprofen (Ibu) 600 Mg Tablet, 600 MG PO Q6HR PRN for PAIN-MILD (1-4) Prescribed by: EVE YAO on 12/27/20 1348 Oxycodone Hcl (Oxyir Tablet) 5 Mg Tab, 5 MG PO Q4H PRN for PAIN-SEVERE (8-10) Prescribed by: EVE YAO on 12/27/20 1348 Review of Systems Review of Systems Constitutional: see HPI; No chills, No fever EENTM: No nose congestion, No throat pain Respiratory: No cough, No short of breath Cardiovascular: No edema Gastrointestinal: abdominal pain; No nausea, No vomiting Genitourinary: denies dysuria; pain : No Musculoskeletal: No back pain All Other Systemes Reviewed Negative Unless Noted: Yes Past Sqfiyca-Mtngta-Eefugy Hx Patient Social History Tobacco Use?: No Use of E-Cig and/or Vaping dev: No Substance use?: No Alcohol Use?: Yes Alcohol Frequency: Once in a while Pt feels they are or have been: No Immunizations Up To Date Tetanus Booster (TDap): Unknown Seasonal Allergies Seasonal Allergies: No Past Medical History Surgeries: Yes (WISDOM TEETH, dxls, leep) Appendectomy Respiratory: Yes (hx of strep pneumonia w/ septic shock) Currently Using CPAP: No Currently Using BIPAP: No Cardiac: No Neurological: No Reproductive Disorders: No Female Reproductive Disorders: Ovarian Cyst [employer] History: IUD Sexually Transmitted Disease: No Genitourinary: No Kidney Stones Gastrointestinal: No Musculoskeletal: Yes (RIGHT WRIST- FX) Fractures Endocrine: No HEENT: No Cancer: No Psychosocial: No Integumentary: No Blood Disorders: No Adverse Reaction/Blood Tranf: No Family Medical History Reviewed Nursing Family Hx Colon cancer FH: colon cancer 19 MOTHER, Onset:Unknown Thyroid disease Physical Exam Vital Signs Vital Signs - First Documented 09/16/22 09:00 Temp 36.8 Pulse 75 Resp 16 B/P (MAP) 114/81 (92) Pulse Ox 100 O2 Delivery Room Air Capillary Refill : Less Than 3 Seconds Height, Weight, BMI Height: 5'4.00" Weight: 143lbs. 0.0oz. [id number]; 24.00 BMI Method:Stated General Appearance: WD/WN, no apparent distress HEENT: PERRL/EOMI, pharynx normal Neck: full range of motion, supple Cardiovascular: regular rate, rhythm, no murmur Respiratory: lungs clear, normal breath sounds Gastrointestinal: non tender, soft Pelvic: other (Deferred) Extremities: non-tender, normal inspection Neurologic/Psychiatric: alert, oriented x 3 Skin: normal color, warm/dry Progress/Results/Core Measures Suspected Sepsis SIRS Temperature: Pulse: 75 Respiratory Rate: 16 Laboratory Tests 09/16/22 09:29: White Blood Count 6.3 Blood Pressure 114 /81 Mean: 92 Laboratory Tests 09/16/22 09:29: Creatinine 0.78, Platelet Count 282, Total Bilirubin 0.5 Results/Orders Lab Results Laboratory Tests Test 09/16/22 09:29 Range/Units White Blood Count 6.3 4.3-11.0 10^3/uL Red Blood Count 4.86 3.80-5.11 10^6/uL Hemoglobin 14.3 11.5-16.0 g/dL Hematocrit 43 35-52 % Mean Corpuscular Volume 89 80-99 fL Mean Corpuscular Hemoglobin 29 25-34 pg Mean Corpuscular Hemoglobin Concent 33 32-36 g/dL Red Cell Distribution Width 14.0 10.0-14.5 % Platelet Count 282 130-400 10^3/uL Mean Platelet Volume 9.3 9.0-12.2 fL Immature Granulocyte % (Auto) 1 % Neutrophils (%) (Auto) 70 42-75 % Lymphocytes (%) (Auto) 20 12-44 % Monocytes (%) (Auto) 7 0-12 % Eosinophils (%) (Auto) 2 0-10 % Basophils (%) (Auto) 1 0-10 % Neutrophils # (Auto) 4.4 1.8-7.8 10^3/uL Lymphocytes # (Auto) 1.2 1.0-4.0 10^3/uL Monocytes # (Auto) 0.4 0.0-1.0 10^3/uL Eosinophils # (Auto) 0.1 0.0-0.3 10^3/uL Basophils # (Auto) 0.0 0.0-0.1 10^3/uL Immature Granulocyte # (Auto) 0.0 0.0-0.1 10^3/uL Sodium Level 137 135-145 MMOL/L Potassium Level 3.8 3.6-5.0 MMOL/L Chloride Level 104 98-107 MMOL/L Carbon Dioxide Level 26 21-32 MMOL/L Anion Gap 7 5-14 MMOL/L Blood Urea Nitrogen 13 7-18 MG/DL Creatinine 0.78 0.60-1.30 MG/DL Estimat Glomerular Filtration Rate 91 BUN/Creatinine Ratio 17 Glucose Level 87 70-105 MG/DL Calcium Level 9.2 8.5-10.1 MG/DL Corrected Calcium 9.0 8.5-10.1 MG/DL Total Bilirubin 0.5 0.1-1.0 MG/DL Aspartate Amino Transf (AST/SGOT) 16 5-34 U/L Alanine Aminotransferase (ALT/SGPT) 11 0-55 U/L Alkaline Phosphatase 59 40-136 U/L Total Protein 7.6 6.4-8.2 GM/DL Albumin 4.2 3.2-4.5 GM/DL My Orders Orders - IMMANUEL CRONIN MD Cbc With Automated Diff (09/16/22 09:24) Comprehensive Metabolic Panel (09/16/22 09:24) Type And Screen (09/16/22 09:24) Ed Iv/Invasive Line Start (09/16/22 09:24) Estrogens Conj Injection (Premarin Injec (09/16/22 10:00) Water (Sterile) For Injection (Sterile W (09/16/22 10:14) Us Non Ob Pelvis Comp/Transvag (09/16/22 09:34) Medications Given in ED Current Medications Medications Dose Ordered Sig/Shyanne Route Start Time Stop Time Status Last Admin Dose Admin Estrogens Conjugated 25 mg ONCE ONCE IV 09/16/22 10:00 09/16/22 10:01 DC 09/16/22 10:56 25 MG Sterile Water 10 ml @ ud STK-MED ONCE .ROUTE 09/16/22 10:14 09/16/22 10:16 DC 09/16/22 10:56 5 MLS/HR Vital Signs/I&O 09/16/22 09:00 Temp 36.8 Pulse 75 Resp 16 B/P (MAP) 114/81 (92) Pulse Ox 100 O2 Delivery Room Air Capillary Refill : Less Than 3 Seconds Blood Pressure Mean: 92 Progress Note : Progress Note Seen and evaluated. IV and labs ordered. I did discuss the case with Dr. IRENE at 0932. He is recommending Premarin 25 mg IV and ultrasound if patient is amiable. Dr. Irene also reports that he would be able to see her later this afternoon so we will defer pelvic until that time if needed. She had normal pelvic exam with her nurse practitioner 2 months ago. 0942: I did discuss this with the patient and she is amiable to Premarin so we will order that. Ultrasound ordered. 1041: Patient is an ultrasound currently. Hemoglobin is normal and CBC and CMP are both normal in total. Pending ultrasound. 1150: She is still doing okay. I did discuss the case with Dr. IRENE. He states that he can follow-up with her tomorrow. I did speak with the patient and she is deciding on which traveling sales executive to follow-up with and has brought Dr. IRENE's name and Dr. JOHNSON. I did discuss return precautions and the need for follow-up. Discharged home with return precautions. Patient verbalized understanding instructions and agreement with plan. Diagnostic Imaging Diagonstic Imaging: Ultrasound Plain Films/CT/US/NM/MRI: pelvis Comments [facility], [place] NAME: SHELBY TSE [facility] REC#: [id number] PT STATUS: REG ER : 1970 PHYSICIAN: IMMANUEL CRONIN MD ADMIT DATE: 09/16/22/ER Signed Date of Exam:09/16/22 US NON OB PELVIS COMP/TRANSVAG PROCEDURE: US Non-ob pelvis comp/trans. TECHNIQUE: Multiple realtime grayscale images were obtained of the pelvis in various projections endovaginally. Transabdominal imaging was also performed. INDICATION: Vaginal bleeding. COMPARISON: Pelvic ultrasound 03/19/2020 FINDINGS: The uterus measures 11.5 x 7.0 x 9.2 cm. There are multiple masses within the myometrium that are most compatible with intramural fibroids. The largest is in the posterior fundus measuring 3.5 x 2.8 x 3.3 cm. The endometrium measures up to 1.5 cm where visualized, and is normal in echogenicity. At the level the cervix, there is an ovoid isoechoic nodule that is likely a complicated nabothian gland cyst. The right ovary measures 3.9 x 2.9 x 3.1 cm. Blood flow is present within the right ovary. There is also a hypoechoic 3.3 x 2.3 x 2.3 cm mixed echogenicity mass that is compatible teratoma seen on CT from 12/02/2014. Left ovary is unable be seen due to surrounding bowel gas. IMPRESSION: 1. Multiple uterine fibroids are present. These do not exert mass effect on the endometrium. 2. Mildly complicated nabothian gland cysts. 3. Stable right ovarian teratoma/dermoid cyst. Dictated by: Dictated on workstation # [id number] Dict: 09/16/22 1121 Trans: 09/16/22 1141 [id number] Interpreted by: CHEMA WORRELL MD Electronically signed by: CHEMA WORRELL MD 09/16/22 1141 Departure Impression Primary Impression: Dysfunctional uterine bleeding Disposition: 01 HOME, SELF-CARE Condition: Stable Departure-Patient Inst. Decision time for Depature: 11:52 Referrals: YOUNG JOHNSON DENNIS G MD NO,LOCAL PHYSICIAN (PCP) Primary Care Physician Patient Instructions: Heavy Periods (DC) Add. Discharge Instructions: All discharge instructions reviewed with patient and/or family. Voiced understanding. Is very important that you follow-up for your heavy vaginal bleeding. You may call Dr. Irene's office for appointment. If you prefer, you may call Dr. Johnson's office for appointment. Return for persistent heavy bleeding greater than 2 large soaked pads per hour for more than 2 hours, weakness, breathing problems, fever or other concerns as needed. IMMANUEL CRONIN MD Sep 16, 2022 10:26
--- NOTE | 2022-09-16 11:39 | Diagnostic Imaging Report ---
PROCEDURE: US Non-ob pelvis comp/trans. TECHNIQUE: Multiple realtime grayscale images were obtained of the pelvis in various projections endovaginally. Transabdominal imaging was also performed. INDICATION: Vaginal bleeding. COMPARISON: Pelvic ultrasound 03/19/2020 FINDINGS: The uterus measures 11.5 x 7.0 x 9.2 cm. There are multiple masses within the myometrium that are most compatible with intramural fibroids. The largest is in the posterior fundus measuring 3.5 x 2.8 x 3.3 cm. The endometrium measures up to 1.5 cm where visualized, and is normal in echogenicity. At the level the cervix, there is an ovoid isoechoic nodule that is likely a complicated nabothian gland cyst. The right ovary measures 3.9 x 2.9 x 3.1 cm. Blood flow is present within the right ovary. There is also a hypoechoic 3.3 x 2.3 x 2.3 cm mixed echogenicity mass that is compatible teratoma seen on CT from 12/02/2014. Left ovary is unable be seen due to surrounding bowel gas. IMPRESSION: 1. Multiple uterine fibroids are present. These do not exert mass effect on the endometrium. 2. Mildly complicated nabothian gland cysts. 3. Stable right ovarian teratoma/dermoid cyst. Dictated by: Dictated on workstation # [id number]
[2022-09-16 12:20] VITALS: BP 106/80
== END 2022-09-16 12:23 | disposition home or self-care (01) ==
LOC: EDUNIT# 08:53 → ER 08:56
DX: N93.8 Other specified abnormal uterine and vaginal bleeding (principal); Z97.5 Presence of (intrauterine) contraceptive device
CPT/HCPCS: 36415; 76830; 76856; 80053; 85025; 86850; 86900; 86901

== ENCOUNTER 2023-06-16 10:19 | Day surgery (SDC) | payer BC ==
[~2023-06-16] VITALS: Ht 162.6 cm; Wt 63.5 kg
[2023-06-16] VITALS (10 sets, daily range): BP systolic 78–112; BP diastolic 47–72
[2023-06-16] MEDS ORDERED: LACTATED RINGERS 1,000 ML IV PRN (10:45)
[2023-06-16] MEDS ORDERED: ceFAZolin INJECTION 2,000 MG in NS (IVPB) 50 ML 50 ML IV ONE (10:45)
--- NOTE | 2023-06-16 11:16 | Progress Note-Pre Operative ---
Pre-Operative Progress Note Date of Available H&P: Jun 10, 2023 Date H&P Reviewed: Jun 16, 2023 Time H&P Reviewed: 11:13 History & Physical: H&P Reviewed, Patient Examed, No changes noted Pre-Operative Diagnosis: Right shoulder mass, site marked RUIZ GARCIA DO Jun 16, 2023 11:16
[2023-06-16] MEDS ORDERED: MIDAZOLAM 2 MG/2 ML (VERSED) VIAL ONE (11:40)
[2023-06-16] MEDS ORDERED: LIDOCAINE/EPI 1%-1:100,000 (XYLOCAINE) 20ML ONE (12:10)
[2023-06-16] MEDS ORDERED: ONDANSETRON 4 MG/2 ML (SDV) Z0FRAN ONE (12:26)
[2023-06-16] MEDS ORDERED: LIDOCAINE PF 2% 5 ML (XYLOCAINE) VIAL ONE (12:26)
[2023-06-16] MEDS ORDERED: fentaNYL INJ 100 MCG/2 ML AMP ONE (12:26)
[2023-06-16] MEDS ORDERED: SEVOFLURANE (ULTANE) 15 ML INHAL SOLN ONE (12:26)
[2023-06-16] MEDS ORDERED: proPOfol 200 MG/20 ML (DIPRIVAN) VIAL IV ONE (12:26)
[2023-06-16] MEDS ORDERED: LIDOCAINE/EPI 1%-1:100,000 (XYLOCAINE) 20ML INJ ONE (14:00)
--- NOTE | 2023-06-16 14:04 | Progress Note-Post Operative ---
Post-Operative Progess Note Surgeon (s)/Trashman (s) Surgeon RUIZ GARCIA DO Trashman: none Pre-Operative Diagnosis Right shoulder mass, site marked Post-Operative Diagnosis same pending path Procedure & Operative Findings Date of Procedure 06/16/23 Procedure Performed/Findings Excision of Right shoulder mass, Subfascial 3.7cm incision Anesthesia Type LMA Estimated Blood Loss Estimated blood loss (mL): scant Specimens/Packing Specimens Removed right shoulder mass RUIZ GARCIA DO Jun 16, 2023 14:04
[2023-06-16] MEDS ORDERED: ACHD5005 PO (14:05)
--- NOTE | 2023-06-16 14:06 | Discharge Inst-Surgical ---
Discharge Inst-Surgical Depart Medication/Instructions New, Converted or Re-Newed RX: Transmitted to Pharmacy Patient Instructions Follow up Appt: Make appointment for 1 week. [phone] Instructions: No lifting greater than 20 pounds. No strenuous activity. May shower in 24 hours, no tub bath or soaking. Use incentive spirometer at home as directed. No Smoking Skin/Wound Care: May remove bandages in am. You need to leave the Dermabond on incision it will fall off on it's own. Symptoms to Report: Appetite Changes, Extremity Discoloration, Numbness/Tingling, Swelling Increased, Bleeding Excessive, Eyesight Changes, Pain Increased, Urine Color Change, Constipation(Persistent), Fever over 101 degree F, Pain/Pressure in chest, Urinating Difficulty, Cough Up/Vomit Blood, Heart Beat Irreg/Pounding, Pain/Pressure in jaw, Cramps in feet or legs, Lightheadedness, Pain/Pressure in shoulder, Diarrhea(Persistent), Memory Changes Suddenly, Questions/Concerns, Weight gain consecutive days, Dizziness/Fainting, Nausea/Vomiting, Shortness of Breath, Weight gain over 2 pounds If questions or concerns contact your physician Or seek help at emergency department. Activity Activity Instructions: Avoid Stress to Incision Driving Instructions: No Driving/Refer to Diet Discharge Diet: No Restrictions Diet After 24 Hours: Clear Liquid if Nauseous If Any Problems/Questions/Issu: Contact Your Physician, Go to Emergency Room Skin/Wound Care Infection Signs and Symptoms: Increased Redness, Foul Odor of Wound, Increased Drainage, Skin Itchy or Has a Rash, Increased Swelling, Temperature Above 101 F Bathing Instructions: RUIZ Sanders DO Jun 16, 2023 14:06
--- NOTE | 2023-06-16 14:12 | Anesthesia-General Post-Op ---
General Patient Condition Mental Status/LOC: Same as Preop Cardiovascular: Satisfactory Nausea/Vomiting: Absent Respiratory: Satisfactory Pain: Controlled Complications: Absent Post Op Complications Complications None Follow Up Care/Instructions Patient Instructions None needed. Anesthesia/Patient Condition Patient Condition Patient is doing well, no complaints, stable vital signs, no apparent adverse anesthesia problems. No complications reported per nursing. RODRÍGUEZ LIN CRNA Jun 16, 2023 14:12
[2023-06-16] MEDS ORDERED: morphine INJ 10 MG/ML 1ML (SYR OR VIAL) IVP ONE (14:15)
[2023-06-16] MEDS ORDERED: ONDANSETRON 4 MG/2 ML (SDV) Z0FRAN IVP PRN (14:15)
[2023-06-16] MEDS ORDERED: MEPERIDINE (DEMEROL) INJ 50 MG/ML IVP ONE (14:15)
[2023-06-16] MEDS ORDERED: fentaNYL INJ 100 MCG/2 ML AMP IVP ONE (14:15)
--- NOTE | 2023-06-16 20:14 | OPERATIVE REPORT ---
DATE OF SERVICE: 06/16/2023 PREOPERATIVE DIAGNOSIS: Right shoulder mass. POSTOPERATIVE DIAGNOSIS: Right shoulder mass, pending pathology. PROCEDURE: Excision of right shoulder mass, subfascial mass measuring about 3.7 cm incision. SURGEON: Yonis Almonte DO SOD STRIPPER: None. ANESTHESIA: LMA. SPECIMENS: Right shoulder mass. BLOOD LOSS: Less than 5 mL FLUIDS: Per anesthesia. POSTOPERATIVE CONDITION: Stable. INDICATIONS FOR PROCEDURE: The patient has a mass in her right shoulder, it has been bothering her and getting bigger and she wanted it removed. FINDINGS: The patient had a right shoulder mass, most likely lipoma, had some finger-like projections and appeared to be under the fascia. DESCRIPTION OF PROCEDURE: After informed consent was obtained, the patient was brought to the operating room. She was placed on table in left lateral decubitus position. She was then sterilely prepped and draped in normal fashion. Local lidocaine was used to infiltrate the skin above the mass, then as well around it. I then made an incision with #15 blade, carried down through the skin into subcutaneous tissue. This incision measured about 3.7 cm deep down to subcutaneous tissue with Bovie electrocautery going around and then there was some fascia, was able to go through this and then pull out the rest of this, what looked like a lipoma, had some finger-like projection superiorly as well as inferiorly and laterally and medially. I was able to get all of this out, copiously irrigated with normal saline. Hemostasis was obtained using Bovie electrocautery and then elected to close the incision, closing the deep tissue with 3-0 Vicryl, 3 interrupted sutures, then closed the skin with 4-0 undyed Monocryl 3 interrupted subcuticular stitches. Area was cleaned and dried, dressings placed. The patient tolerated the procedure. She was transferred to recovery room in stable condition. Sponge, instrument and needle count correct at the end of the case. Job ID: [id number] DocumentID: [id number] Dictated Date: 06/16/2023 16:13:35 Street Commissioner Date: 06/16/2023 20:12:00 Dictated By: YONIS ALMONTE DO
== END 2023-06-16 15:55 ==
LOC: SDC 10:19
PROVIDERS: ATTEND Surgery
DX: D17.21 Benign lipomatous neoplasm of skin and subcutaneous tissue of right arm (principal)
CPT/HCPCS: 84703; 87081; 88304